=== PATIENT | male | born 1950 | race Caucasian/White ===

== ENCOUNTER 2017-02-14 23:46 | Inpatient (IN) | payer OTHER ==
--- NOTE | 2017-02-15 00:01 | EDPHY ---
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 No witnessed seizure. 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 States that he has been compliant with his Keppra. He last remembers talking to a jitney driver as she was EN route to a restaurant and then remembers being in the ambulance. Per eye witnesses on scene he was altered with no definitive signs of stroke . He denies alcohol use this evening. PRIMARY CARE PROVIDER: Abel REVIEW OF SYSTEMS: A ten point review of systems was performed and is negative with the exception of the items mentioned in the HPI PAST MEDICAL & SURGICAL HISTORY: intracranial malignancy SOCIAL HISTORY:daily alcohol use. Lives by himself . 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 Intermittently confused about what day it is. . 2) HEAD: Normocephalic, left parietal hematoma no abrasion or laceration 3) HEENT: Pupils equal, round, reactive to light bilaterally. Sclera anicteric. No raccoon eyes no Stewart sign. Nasopharynx, oropharynx, clear, no lesions. A hemotympanum. No otorrhea. No rhinorrhea. Ears bilaterally with normal tympanic membranes. 4) NECK: Full range of motion, no meningeal signs. No midline C-spine pain. No step-off. 5) LUNGS: Clear auscultation bilaterally, no wheezes, no rhonchi, no retractions. 6) HEART: Regular rate and rhythm, no murmur, no heave, no gallop. 7) ABDOMEN: No guarding, no rebound, no focal tenderness, 8) MUSCULOSKELETAL: Moving all extremities, no focal areas of tenderness, no obvious trauma. No peripheral edema or discoloration. 9) BACK: no midline vertebral tenderness, no fluctuance, no step-off, no obvious trauma, no visual or palpable abnormality. 10) SKIN: No rash, no petechiae. DIFFERENTIAL DIAGNOSIS: In no particular order including but not limited to hypoglycemia, infectious process, electrolyte abnormality, head injury and intoxicants. (Paige Donnelly) Constitutional: Initial Vital Signs Temperature (C) 37.7 C 02/15/17 00:00 Heart Rate 100 02/15/17 00:00 Respiratory Rate 16 02/15/17 00:00 Blood Pressure 125/81 H 02/15/17 00:00 O2 Sat (%) 95 02/15/17 00:00 O2 Delivery Mode Room Air Allergies/Adverse Reactions: No Known Allergies Allergy (Unverified 06/10/15 17:55) Home Medications: Medication Instructions Recorded Cholestid Unk Dose 07/24/12 levETIRAcetam [Keppra] 500 mg PO BID #60 tab 06/10/15 Medical Decision Making - Diagnostics Imaging: Discussed imaging studies w/ silverlight developer Radiologist - Diagnostics Imaging Results: Imaging Impressions Head CT 02/14/17 23:53 Impression: 1. Large right frontal intraparenchymal hemorrhage contiguous with the broad subdural hematoma extending along the right cerebral convexity and interhemispheric falx. 2. 6 mm of right to left shift and mass effect upon the right lateral ventricle. 3. Petechial hemorrhagic contusion low left frontal lobe. 4. Intraventricular hemorrhage and trace subarachnoid hemorrhage along the high left parietal convexity. 5. Nondisplaced right parietal and occipital skull fracture. Findings discussed with Emergency Department physicianPaige at 0:28. ED Course/Re-evaluation: 11:59 p.m.: Patient evaluated by myself and discussed case with secondary supervising physician Dr. Cisneros shortly after examination, who subsequently evaluated patient herself. Patient is currently altered. Specific etiology not completely clear, will obtain multiple diagnostic studies including ammonia as he notes daily alcohol use 12:24 a.m.: CT imaging interpreted by radiologist showing intraparenchymal hemorraghe 1229 am: Phone [facility]. Jorge Luis Coto [facility] ED PA DICTATION I evaluated and participated in the management of the patient. I also evaluated the patient independently. My co-signature indicates that I have reviewed this chart and I agree with the findings and plan of care as documented. My personal H&P findings include: This is a 66-year-old male with some sort of prior brain operation, who presents with altered mental status. CT scan revealed intraparenchymal hemorrhage in the right frontal region. We consulted with Dr. Coto of Neurosurgery. He recommends Keppra 1 g IV, MRI with and without contrast of the brain, and obtaining additional information about the patient's history. The patient remained stable throughout his time in the ED. MRI was performed while he was here and revealed bleed that appeared to be posttraumatic. 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 Dr. Coto came in to evaluate the patient and will admit him to the ICU for further care. I called the patient's son who lives in [place], however he was unavailable. (Carleen Cisneros) Critical Care Time: CRITICAL CARE Critical care time spent by me, Dr. Cisneros, exclusively with this patient was 60 minutes, exclusive of PA time and exclusive of procedures. The organ system at risk was neuro and I gave IV fluids, antiepileptic drugs, emergently transfer the patient to the intensive care unit to prevent worsening of the patients condition. (Carleen Cisneros) - Data Points Laboratory Results: Laboratory Results 02/15/17 00:16 02/15/17 00:16 02/15/17 02/15/17 02/15/17 00:16 00:16 00:16 WBC RBC Hgb Hct MCV MCH MCHC RDW Plt Count MPV Neut % (Auto) Lymph % (Auto) [place] % (Auto) Eos % (Auto) Baso % (Auto) Nucleat RBC Rel Count Absolute Neuts (auto) Absolute Lymphs (auto) Absolute Monos (auto) Absolute Eos (auto) Absolute Basos (auto) Absolute Nucleated RBC Immature Gran % Immature Gran # PT 12.6 SEC SEC (12.0-15.0) INR 0.95 (0.83-1.16) APTT 25.2 SEC SEC (23.0-38.0) Sodium 131 mEq/L L mEq/L (134-144) Potassium 3.3 mEq/L L mEq/L (3.5-5.2) Chloride 87 mEq/L L mEq/L (97-110) Carbon Dioxide 18 mEq/l L mEq/l (22-31) Anion Gap 26 mEq/L H mEq/L (8-16) BUN 39 mg/dL H mg/dL (7-23) Creatinine 2.0 mg/dL H mg/dL (0.7-1.3) Estimated GFR 34 Glucose 115 mg/dL H mg/dL (70-100) Calcium 10.1 mg/dL mg/dL (8.5-10.4) Total Bilirubin 3.3 mg/dL H mg/dL (0.1-1.4) Conjugated Bilirubin 1.2 mg/dL H mg/dL (0.0-0.5) Unconjugated Bilirubin 2.1 mg/dL H mg/dL (0.0-1.1) AST 87 IU/L H IU/L (17-59) ALT 89 IU/L H IU/L (21-72) Alkaline Phosphatase 55 IU/L IU/L (38-126) Ammonia < 9.0 uMOL/L L uMOL/L (9.0-30.0) Creatine Kinase 334 IU/L H IU/L (0-224) CK-MB (CK-2) Fraction 2.42 ng/mL ng/mL (0.00-3.19) CK-MB (CK-2) % 0.7 % % (0.0-4.0) Creatine Kinase Interp NEGATIVE (NEGATIVE) Troponin I 0.016 ng/mL ng/mL (0.000-0.034) Total Protein 8.0 g/dL g/dL (6.3-8.2) Albumin 4.9 g/dL g/dL (3.5-5.0) Ethyl Alcohol < 10 mg/dL mg/dL (0-10) 02/15/17 00:16 WBC 12.18 10^3/uL H 10^3/uL (3.80-9.50) RBC 3.97 10^6/uL L 10^6/uL (4.40-6.38) Hgb 15.0 g/dL g/dL (13.7-17.5) Hct 41.1 % % (40.0-51.0) MCV 103.5 fL H fL (81.5-99.8) MCH 37.8 pg H pg (27.9-34.1) MCHC 36.5 g/dL g/dL (32.4-36.7) RDW 11.9 % % (11.5-15.2) Plt Count 215 10^3/uL 10^3/uL (150-400) MPV 11.4 fL fL (8.7-11.7) Neut % (Auto) 79.8 % H % (39.3-74.2) Lymph % (Auto) 7.4 % L % (15.0-45.0) [place] % (Auto) 11.9 % % (4.5-13.0) Eos % (Auto) 0.0 % L % (0.6-7.6) Baso % (Auto) 0.2 % L % (0.3-1.7) Nucleat RBC Rel Count 0.0 % % (0.0-0.2) Absolute Neuts (auto) 9.71 10^3/uL H 10^3/uL (1.70-6.50) Absolute Lymphs (auto) 0.90 10^3/uL L 10^3/uL (1.00-3.00) Absolute Monos (auto) 1.45 10^3/uL H 10^3/uL (0.30-0.80) Absolute Eos (auto) 0.00 10^3/uL L 10^3/uL (0.03-0.40) Absolute Basos (auto) 0.03 10^3/uL 10^3/uL (0.02-0.10) Absolute Nucleated RBC 0.00 10^3/uL 10^3/uL (0-0.01) Immature Gran % 0.7 % % (0.0-1.1) Immature Gran # 0.09 10^3/uL 10^3/uL (0.00-0.10) PT INR APTT Sodium Potassium Chloride Carbon Dioxide Anion Gap BUN Creatinine Estimated GFR Glucose Calcium Total Bilirubin Conjugated Bilirubin Unconjugated Bilirubin AST ALT Alkaline Phosphatase Ammonia Creatine Kinase CK-MB (CK-2) Fraction CK-MB (CK-2) % Creatine Kinase Interp Troponin I Total Protein Albumin Ethyl Alcohol Medications Given: Potassium Chloride/Sodium Chloride (Ns W/ 20 Kcl/L) 1,000 mls @ 100 mls/hr IV CONT SEFERINO Stop: 08/14/17 03:44 Last Admin: 02/15/17 04:07 Dose: 1,000 mls Discontinued Medications Levetiracetam 500 mg/ Sodium (Chloride) 105 mls @ 420 mls/hr IV EDNOW ONE Stop: 02/15/17 00:35 Last Admin: 02/15/17 00:40 Dose: 105 mls Levetiracetam 500 mg/ Sodium (Chloride) 105 mls @ 420 mls/hr IV EDNOW ONE Stop: 02/15/17 01:00 Last Admin: 02/15/17 01:14 Dose: 105 mls Lorazepam (Ativan Injection) 1 mg IVP EDNOW ONE Stop: 02/15/17 01:48 Last Admin: 02/15/17 01:52 Dose: 1 mg Departure - Departure Disposition: [facility] Inpatient Acute Clinical Impression: Intracranial hemorrhage Skull fracture Qualifiers: Encounter type: initial encounter Skull bone/location: occipital bone Fracture type: closed Occipital fracture type: unspecified fracture of occiput Laterality : right Qualified Code(s): S02.119A - Unspecified fracture of occiput, initial encounter for closed fracture Condition: Fair
--- NOTE | 2017-02-15 00:10 | CPEKG ---
Heart Rate: 99 RR Interval: 606 P-R Interval: 156 QRSD Interval: 90 QT Interval: 408 QTC Interval: 524 P [place]: 16 QRS [place]: 46 T Wave [place]: 52 EKG Severity - ABNORMAL ECG - EKG Impression: SINUS RHYTHM EKG Impression: PROBABLE LEFT ATRIAL ABNORMALITY EKG Impression: PROLONGED QT INTERVAL Electronically Signed By: Carleen Cisneros 15-Feb-2017 07:13:38
[2017-02-15 00:20] LABS: % IMMATURE GRANULYOCYTES 0.7 % (0.0-1.1); ABSOLUTE IMMATURE GRANULOCYTES 0.09 10^3/uL (0.00-0.10); ADD DIFF? NO; ADD MORPH? NO; ADD SCAN? NO; ATYPICAL LYMPHOCYTE FLAG 0 (0-99); FRAGMENT RBC FLAG 0 (0-99); HEMATOCRIT 41.1 % (40.0-51.0); LEFT SHIFT FLG 0 (0-99); LIPEMIA HEMOLYSIS FLAG 90 (0-99); MEAN CELL HEMOGLOBIN 37.8 pg (27.9-34.1); MEAN CELL HEMOGLOBIN CONCENTR. 36.5 g/dL (32.4-36.7); MEAN CELL VOLUME 103.5 fL (81.5-99.8); MEAN PLATELET VOLUME 11.4 fL (8.7-11.7); PLATELET CLUMPS FLAG 10 (0-99); PLATELET COUNT 215 10^3/uL (150-400); RED BLOOD CELL COUNT 3.97 10^6/uL (4.40-6.38); RED CELL DISTRIBUTION WIDTH 11.9 % (11.5-15.2)
[2017-02-15] MEDS ORDERED: levETIRAcetam 500 MG in NS 100 ML IV ONE ×2 (00:21→00:46)
[2017-02-15 00:29] LABS: APTT 25.2 SEC (23.0-38.0); INR 0.95 (0.83-1.16); PROTIME(PATIENT) 12.6 SEC (12.0-15.0)
[2017-02-15 00:45] LABS: ALANINE AMINOTRANSFERASE 89 IU/L (21-72); ALBUMIN 4.9 g/dL (3.5-5.0); ALKALINE PHOSPHATASE 55 IU/L (38-126); ANION GAP 26 mEq/L (8-16); ASPARTATE AMINOTRANSFERASE 87 IU/L (17-59); BILIRUBIN,TOTAL 3.3 mg/dL (0.1-1.4); BILIRUBIN-CONJUGATED 1.2 mg/dL (0.0-0.5); BILIRUBIN-UNCONJUGATED 2.1 mg/dL (0.0-1.1); CALCIUM 10.1 mg/dL (8.5-10.4); CARBON DIOXIDE 18 mEq/l (22-31); CHLORIDE 87 mEq/L (97-110); ETHANOL SERUM < 10 mg/dL (0-10); GLOMERULAR FILTRATION RATE 34; GLUCOSE 115 mg/dL (70-100); POTASSIUM 3.3 mEq/L (3.5-5.2); SODIUM 131 mEq/L (134-144)
[2017-02-15 00:57] LABS: TROPONIN I 0.016 ng/mL (0.000-0.034)
[2017-02-15 01:06] LABS: CK-MB INTERPRETATION NEGATIVE (NEGATIVE); CREATINE KINASE-MB FRACTION 2.42 ng/mL (0.00-3.19)
[2017-02-15] MEDS ORDERED: LORazepam 2 MG/ML INJ IVP ONE (01:47)
[2017-02-15] MEDS ORDERED: GADOBUTROL 10 ML VIAL IVP ONE (01:50)
[2017-02-15] MEDS ORDERED: BISACODYL 10 MG SUPP PR PRN (03:39)
[2017-02-15] MEDS ORDERED: ONDANSETRON 4 MG/2 ML VIAL IVP PRN ×2 (03:39→11:33)
[2017-02-15] MEDS ORDERED: LACTULOSE 20 GM/30 ML UDCUP PO PRN (03:39)
[2017-02-15] MEDS ORDERED: POLYETHYLENE GLYCOL 3350 17 GM PKT PO PRN (03:39)
[2017-02-15] MEDS ORDERED: MAGNESIUM HYDROXIDE 30 ML UDCUP PO PRN (03:39)
[2017-02-15] MEDS: NS W/ 20 KCl/L 1,000 ML IV SCH ×2 (04:07→17:44)
[2017-02-15 05:30] LABS: % IMMATURE GRANULYOCYTES 0.4 % (0.0-1.1); ABSOLUTE IMMATURE GRANULOCYTES 0.04 10^3/uL (0.00-0.10); ADD DIFF? NO; ADD MORPH? NO; ADD SCAN? NO; ATYPICAL LYMPHOCYTE FLAG 0 (0-99); FRAGMENT RBC FLAG 0 (0-99); HEMATOCRIT 34.2 % (40.0-51.0); HEMOGLOBIN 12.5 g/dL (13.7-17.5); LEFT SHIFT FLG 0 (0-99); LIPEMIA HEMOLYSIS FLAG 90 (0-99); MEAN CELL HEMOGLOBIN 37.1 pg (27.9-34.1); MEAN CELL HEMOGLOBIN CONCENTR. 36.5 g/dL (32.4-36.7); MEAN CELL VOLUME 101.5 fL (81.5-99.8); MEAN PLATELET VOLUME 11.1 fL (8.7-11.7); PLATELET CLUMPS FLAG 0 (0-99); PLATELET COUNT 164 10^3/uL (150-400); RED BLOOD CELL COUNT 3.37 10^6/uL (4.40-6.38); RED CELL DISTRIBUTION WIDTH 11.7 % (11.5-15.2)
[2017-02-15 05:36] LABS: COLOR YELLOW; LEUKOCYTE ESTERASE,URINE NEGATIVE (NEGATIVE); NITRITE,URINE NEGATIVE (NEGATIVE)
[2017-02-15 05:45] LABS: ANION GAP 17 mEq/L (8-16); CALCIUM 8.5 mg/dL (8.5-10.4); CARBON DIOXIDE 18 mEq/l (22-31); CHLORIDE 96 mEq/L (97-110); CREATININE 1.5 mg/dL (0.7-1.3); GLOMERULAR FILTRATION RATE 47; GLUCOSE 97 mg/dL (70-100); POTASSIUM 3.1 mEq/L (3.5-5.2); SODIUM 131 mEq/L (134-144)
--- NOTE | 2017-02-15 06:58 | GHP ---
[f rep st] HISTORY AND PHYSICAL DATE OF ADMISSION: 02/15/2017 The patient was seen and evaluated in the [facility] Emergency Department at [facility] 3:20 a.m. on 02/15/2017. HISTORY OF PRESENT ILLNESS: The patient is a 66-year-old man with a slightly unclear history. 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 Since that time, he has been functioning well and has been living independently. He does co ntinue on Keppra, but does not take any other medications. Apparently, this evening, he was found b y his next door neighbor, who also happens to be 1 of ER physicians, in her driveway without his rowan ts on. He seemed to be confused and was therefore brought to the emergency department. Here, he re mained somewhat confused and acting a bit strange, but otherwise was neurologically intact. A CT of the head was done which revealed a large, 5 cm, right frontal, intraparenchymal hemorrhage beneath his old craniotomy flap. There is about 5 or 6 mm of anterior midline shift from right to left in t he area of the hemorrhage. There is also an associated subdural which measures about 5 or 6 mm at t he right frontal pole. He subsequently had an MRI scan which was significantly degraded by motion, but did not show any obvious underlying vascular malformation or tumor. He has a mild headache curr ently, but otherwise has no complaints. He does say that he does not recall falling this evening, b ut he did fall about 2 days ago and hit his head, losing the lens of his glasses on the right side. REVIEW OF SYSTEMS: A 10-point review of systems is negative, other than that described above in the HPI. 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 SOCIAL HISTORY: The patient lives alone. His apparently recently in the last coup le of years from a heart condition. 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 He denies any tobacco or ot her drug use, and drinks daily alcohol with dinner. FAMILY HISTORY: Negative for intracranial malignancy or other neurosurgical process. ALLERGIES: No known drug allergies. MEDICATIONS: Keppra. PHYSICAL EXAM: Currently, he is afebrile with normal stable vital signs. His blood pressure was in the 120s systolic, heart rate was in the 100s. He is awake, alert, and oriented x3. He is slightl y confused about the situation, but otherwise is quite conversant with fluent speech. His pupils ar e equal, round, and react to light. His extraocular movements are intact. Face is symmetric. Tong ue is midline. Palate is symmetric. He has an old surgical scar from a bicoronal incision on the h ead. In the extremities, he has 5/5 strength at the deltoids, biceps, triceps, wrist flexion, exten star, and fire warden bilaterally. In the lower extremities, he has 5/5 strength of the hip flexors and ex tensors, knee flexors and extensors, and plantar and dorsiflexion bilaterally. His sensation is nor mal. He has no pronator drift. He does have a mild tremor in both hands with intention. There is no dysmetria or dysdiadochokinesia. The chest is clear to auscultation bilaterally. The heart is w ith regular rate and rhythm. No rubs, murmurs, or gallops. His abdomen is soft, nontender, nondist ended, with active bowel sounds in all 4 quadrants. IMAGING REVIEW: See HPI. LABORATORY REVIEW: The white count is 12.1, hemoglobin 15, hematocrit 41.1, platelet count is 215,0 00. His INR is 0.9, PT is 12.6, PTT is 25.2. Sodium is 131, potassium 3.3, BUN is 39, creatinine 2 , glucose is 115. His CK is 334 and the troponins are negative. ASSESSMENT AND PLAN: The patient is a 66-year-old male with a slightly unclear past medical history . He supposedly had a craniotomy for what sounds like a biopsy of demyelinating encephalomyelitis i n the . He appears to have suffered a fall within the last couple of days and has a large, 5 c m, right frontal, intraparenchymal hemorrhage. He appears to have some surrounding edema; however, compared to an old scan earlier this year, he has some white matter changes in the right frontal lob e beneath his craniotomy, which may be consistent with encephalomalacia or some lasting changes from his previous surgery. He currently is quite stable and other than that, he is acting a bit strange , seems to be neurologically intact. Given the size of this bleed, I think that probably surgical i ntervention would be warranted; however, it does not need to be done emergently in the middle of the night tonight. I spoke to him about this, and he said he will need to think about this a little bi t because he did not ever want to have another craniotomy. I did tell him that if we do not do any surgery, he may certainly get worse with swelling and at that point, we will not be certain that he will recover and get better. I think surgical evacuation would largely speed his recovery. He did get loaded with Keppra here in the emergency department, and we will keep him on Keppra 750 twice da fab. He likely has chronic hyponatremia. We may have the medicine service involved to look into hi s creatinine, unless this is just possibly dehydration. I told him I would speak with him again in the morning regarding surgery, and we could discuss the risks and benefits, again. He is agreeable for this plan. We will admit him to the ICU with q.1 hour neuro checks for now. /[id number]/MODL
--- NOTE | 2017-02-15 08:05 | SOAPPROG ---
[facility] Progress Note Assessment/Plan: Assessment: 66M s/p previous craniotomy for biopsy (ADEM), now with likely traumatic large right frontal IPH, neurologically basically intact Plan: - IPH -- will take to OR this morning for evacuation, will take brain biopsy at same time post-op will monitor exam in ICU, continue keppra 750 BID - elevated creatinine -- ? dehydration, if this persists after fluids will get medicine consult - EtOH withdrawl -- he is daily drinker, may have withdrawls over time, will continue to monitor, depending on neuro exam will place on CIWA - DVT ppx -- SCDs, TEDs 02/15/17 08:02 Subjective: no acute complaints, seems to have short term memory deficit Objective: Vital Signs Temp Pulse Resp BP Pulse Ox 36.8 C 92 20 147/88 H 98 02/15/17 07:00 02/15/17 07:00 02/15/17 07:00 02/15/17 07:00 02/15/17 07:00 Laboratory Results 02/15/17 05:20 02/15/17 05:20 02/14/17 02/15/17 02/16/17 05:59 05:59 05:59 Intake Total 1625 Output Total 250 Balance 1375 PT 12.6 SEC (12.0-15.0) 02/15/17 00:16 INR 0.95 (0.83-1.16) 02/15/17 00:16 AAOx3, follows commands, full strength, no drift, confused about situation, + bilateral hand tremor - Pending Discharge Pending Discharge Within 24 Hours: No Pending Discharge Within 48 Hours: No ICD10 Worksheet Patient Problems: Problems Problem Status Onset Intracranial hemorrhage Acute Skull fracture Acute Seizure disorder Acute
[2017-02-15] MEDS ORDERED: levETIRAcetam 250 MG TAB PO SCH (09:00)
--- NOTE | 2017-02-15 09:03 | PDANEPAE ---
ANE History of Present Illness 66 yo M w R frontal lobe clot here for Crani/clot evac ANE Past Medical History - Cardiovascular History Hx Hypertension: No Hx Arrhythmias: No Cardiovascular History Comment: HLD - Pulmonary History Hx COPD: No Hx Asthma/Reactive Airway Disease: No Hx Oxygen in Use at Home: No Hx Sleep Apnea: No Sleep Apnea Screening Result - Last Documented: Negative - Neurologic History Neurologic History Comment: h/o acute demyelnating encephalomyelitis - Endocrine History Hx Diabetes: No ANE Review of Systems - Exercise capacity Exercise capacity: >=4 METS ANE Patient History - Allergies Allergies/Adverse Reactions: No Known Allergies Allergy (Unverified 06/10/15 17:55) - Home Medications Home medications: home medication list seen and reviewed Home Medications: Cholestid Unk Dose 07/24/12 [Last Taken Unknown] - NPO status NPO Status: no food or drink >8 hours NPO Since - Liquids (Date): 02/14/17 NPO Since - Liquids (Time): 00:00 NPO Since - Solids (Date): 02/14/17 NPO Since - Solids (Time): 00:00 - Anes Hx Anes Hx: no prior problems - Smoking Hx Smoking Status: Never smoked - Alcohol Use Alcohol Use: Occasionally - Family Anes Hx Family Anes Hx: none ANE Labs/Vital Signs - Labs Result Diagrams: 02/15/17 05:20 02/15/17 05:20 - Vital Signs Blood Pressure: 133/89 Heart Rate: 91 Respiratory Rate: 24 O2 Sat (%): 97 Height: 180.34 cm Weight: 71.6 kg ANE Physical Exam - Airway Neck exam: decreased ROM Mallampati Score: Class 3 Mouth exam: poor dentition - Pulmonary Pulmonary: no respiratory distress - Cardiovascular Cardiovascular: regular rate and rhythym - ASA Status ASA Status: III ANE Anesthesia Plan Anesthesia Plan: general endotracheal anesthesia (1/2 MAC volatile 1/2 IV) Lines/Monitors: arterial line Total IV Anesthesia: Yes
[2017-02-15] MEDS ORDERED: THROMBIN (BOVINE) 5,000 UNIT VIAL TP ONE (09:05)
[2017-02-15] MEDS ORDERED: SURGIFLO MATRIX KIT WITH THROMBIN TP ONE (09:05)
[2017-02-15] MEDS ORDERED: BACITRACIN ZINC 14.2 GM OINTTUBE TP ONE (09:05)
[2017-02-15] MEDS ORDERED: CHLORHEXIDINE GLUC HIBICLENS 118 ML BTL TP ONE (09:05)
[2017-02-15] MEDS ORDERED: BACITRACIN 50,000 UNITS/10 ML SYR IRR ONE ×2 (09:05→09:16)
[2017-02-15] MEDS ORDERED: REMIFENTANIL HCL 1 MG VIAL ONE (09:21)
[2017-02-15] MEDS ORDERED: fentaNYL 100 MCG/2 ML INJ ONE (09:21)
[2017-02-15] MEDS ORDERED: ROCURONIUM 100 MG/10 ML VIAL ONE (09:21)
[2017-02-15] MEDS ORDERED: PROPOFOL/EMULSION 500 MG/50 ML BOTTLE IV ONE (09:21)
[2017-02-15] MEDS ORDERED: PROPOFOL 200 MG/20 ML VIAL ONE (09:21)
[2017-02-15] MEDS ORDERED: LIDOCAINE 2% 100 MG/5 ML SYR ONE (09:21)
[2017-02-15] MEDS ORDERED: ceFAZolin 1 GM VIAL ONE ×2 (10:07)
[2017-02-15] MEDS ORDERED: ONDANSETRON 4 MG/2 ML VIAL ONE (10:13)
[2017-02-15] MEDS ORDERED: DEXAMETHASONE 4 MG/ML VIAL ONE (10:13)
[2017-02-15] MEDS: LIDO/EPI 1% **Not for Epidural 20 ML MDV ONE ×2 (10:27→11:02)
[2017-02-15] MEDS ORDERED: HYDROmorphONE/DILAUDID 1 MG/ML SYR IVP PRN (11:33)
[2017-02-15] MEDS ORDERED: ACETAMINOPHEN 325 MG TAB PO PRN (11:33)
[2017-02-15] MEDS ORDERED: fentaNYL 100 MCG/2 ML INJ IVP PRN (11:33)
[2017-02-15] MEDS ORDERED: ACETAMINOPHEN 500 MG TAB PO PRN (11:33)
[2017-02-15] MEDS ORDERED: LORazepam 1 MG TAB PO PRN (11:33)
[2017-02-15] MEDS ORDERED: OXYCODONE/APAP 5/325 TAB PO PRN (11:33)
[2017-02-15] MEDS ORDERED: NALOXONE HCL 0.4 MG/ML INJ IVP PRN (11:33)
--- NOTE | 2017-02-15 11:34 | GOP ---
[f rep st] OPERATIVE REPORT DATE OF OPERATION: 02/15/2017 SURGEON: Jorge Luis Coto MD NEUROSURGEON: Jorge Luis Coto MD. FLOOR SANDING MACHINE OPERATOR: AMADOU Alaniz. PREOPERATIVE DIAGNOSIS: Right frontal intraparenchymal hemorrhage, likely traumatic. POSTOPERATIVE DIAGNOSIS: Right frontal intraparenchymal hemorrhage, likely traumatic. PROCEDURE PERFORMED: 1. Redo right frontal craniotomy. 2. Evacuation of right frontal intraparenchymal hemorrhage. 3. Open brain biopsy. 4. Use of intraoperative ultrasound. FINDINGS: Successful clot evacuation and brain biopsy. SPECIMENS: 1. Right frontal intraparenchymal hemorrhage. 2. Right frontal brain biopsy for permanent pathology. ESTIMATED BLOOD LOSS: 50 cc. INDICATIONS: This patient is a 66-year-old man with history of previous bicoronal incision for a ri t frontal craniotomy for what sounds like a brain biopsy. 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 He has recovered well and still has some encephalomalacia and white matter changes in the right frontal region. He presented last h t after being found confused in his neighbor's driveway wearing no pants, and CT of the brain and humphries bsequent MRI revealed a large right frontal intraparenchymal hemorrhage in the area of encephalomala la, with about 5 or 6 mm of anterior midline shift. Overall his neurologic exam appears to be stab le, other than some confusion, short-term memory issues. Given the overall size of this hemorrhage however, and ideally to decrease the chance of him developing further edema and worsening exam, we e lected to remove this hemorrhage electively. DESCRIPTION OF PROCEDURE: After informed consent was obtained from the patient, the patient was bro ught to the operating room, was placed in supine position on the operating table. A formal time-out was performed, identifying the patient by name, medical record number, and date of . Preopera tive antibiotics were given. The endotracheal tube was placed. General endotracheal anesthesia was smoothly induced. The patient's head was placed in the Azul pins and turned slightly toward th e left side. He had a curved bicoronal style incision, and this was marked on the right side efrain bradley just over the midline. The head was then prepped and draped in the normal sterile fashion. The previous incision was opened using a 10 blade and the subcutaneous tissues were dissected using mono polar electrocautery. The scalp was extremely stiff and difficult to retract. We were able to see some of his right frontal craniotomy flap which must have been previously secured with sutures as it was free-floating and not integrated into the bone. We were not able to expose this all the way do wn to the supraorbital region because of the stiffness of the scalp; however we were able to expose about 2.5 cm of the old flap. The craniotome was then used to turn a roughly 2.5 cm roundish cranio celeste flap using the old opening. The dura was not complete beneath and part of the clot was seen. The intraoperative ultrasound was then used to visualize the extent of the clot and we had good expo sure of this. At this point, suction and bipolar electrocautery were used to enter into the intrapa renchymal hemorrhage and it was completely removed using suction and irrigation. The sr were the n cleaned using irrigation. The frontal horn of the lateral ventricle was visualized at the depth o f the cavity where the hemorrhage had coursed most medially. Once we were able to remove the entire ty of the clot, a portion of the clot was sent for permanent pathology. The sr of the cavity wer e inspected and a few biopsies were taken from the wall and sent for permanent pathology. At this p oint, all bleeding was controlled with bipolar electrocautery. The wound was completely dry and the cavity was lined with Surgicel. At this point, the dural flap was flapped back over the brain and secured in a few places with 4-0 Nurolon. I was somewhat worried that any rundown would run back in to the cavity because the dura could not be completely closed as it was not intact, so some Gelfoam was laid over this area, and no further bleeding was seen. The craniotomy flap was then plated back in place using Synthes titanium plates and screws. The wound was copiously irrigated using bacitra michael irrigation. The galea was closed using interrupted 2-0 Vicryl. The skin was closed using runni ng locking 3-0 Prolene. Sterile dressings were placed. The patient was awakened in the operating r oom. He was extubated and transferred back to the ICU in stable condition. There were no operative complications. I was scrubbed and present for the entire procedure. FLUIDS: Per the Anesthesia record. URINE OUTPUT: Per the Anesthesia record. COMPLICATIONS: There were no operative complications. COUNTS: All sponge and needle counts were correct at the end of the case. DRAINS: There were no drains. /[id number]/MODL
[2017-02-15] MEDS ORDERED: LORazepam 2 MG/ML INJ IVP PRN (11:35)
[2017-02-15] MEDS ORDERED: levETIRAcetam 750 MG in NS 100 ML IV STA (11:43)
[2017-02-15] MEDS ORDERED: LABETALOL HCL 5 MG/ML 20 ML MDV ONE (11:46)
--- NOTE | 2017-02-15 11:48 | POSTOPPROG ---
Post Op Note Date of Operation: 02/15/17 Surgeon: Jorge Luis Coto Furnace Combustion Tester: AMBERLY Saenz PAC Anesthesia: GET(General Endotracheal) Pre-op Diagnosis: right frontal ICB Post-op Diagnosis: right frontal ICB Indication: right frontal ICB Procedure: right frontal craniotomy for evacuation of ICB Inf/Abcess present in the surg proc area at time of surgery?: No EBL: 50cc PA Addendum - Addendum .: S: sleepy, resting comfortably O: NAD RITA, CN II-XII grossly intact MAEx4 follows basic commands Incisional dressing c/d/i a/p 66y/o male s/p right frontal craniotomy for ICB evacuation -Post op head CT this afternoon -Continue Keppra 750mg bid -CIWA protocol ordered -SBP goal 90-140 -Q1 hour neuro checks in ICU -DVT prophx: TEDs, SCDs, hold chemical anticoagulation because of brain bleed -Please notify NS with any change in neuro/motor exam
[2017-02-15] MEDS: HYDROmorphONE/DILAUDID 1 MG/ML SYR IVP PRN (11:50)
--- NOTE | 2017-02-15 12:03 | POSTANESTH ---
Post Anesthetic Evaluation Cardiovascular Status: Normal, Stable, Similar to Pre-Op Cond, Tx Hyper/Hypo- tension (labetalol 10 mg given, cardene gtt ordered) Respiratory Status: Normal, Stable, Similar to Pre-op Cond. Level of Consciousness/Mental Status: Can Participate in Eval, Moderately Sleepy (confused, but able to follow commands, ROE) Pain Control: Adequate, Prn Tx Ordered Nausea/Vomiting Control: Adequate, Prn Tx Ordered Complications Possibly Related to Anesthesia: None Noted
[2017-02-15] MEDS: niCARdipine/NACL 200 ML IV PRN ×2 (12:06→14:08)
[2017-02-15] MEDS: SENNOSIDES/DOCUSATE SODIUM TAB PO SCH ×2 (12:31→20:17)
[2017-02-15] MEDS ORDERED: LABETALOL HCL 5 MG/ML 20 ML MDV IVP ONE (12:45)
[2017-02-15] MEDS ORDERED: ALTEPLASE 2 MG VIAL IVP PRN (14:52)
--- NOTE | 2017-02-15 17:20 | GCON ---
[f rep st] CONSULTATION CRITICAL CARE CONSULTATION DATE OF CONSULTATION: 02/15/2017 REASON FOR CONSULTATION: Intensive care unit evaluation and medical management following craniotomy for evacuation of blood. HISTORY: The patient is a 66-year-old. He had a previous right frontal craniotomy in the for a possible tumor. This ended up not being the case and a demyelinating etiology was found. In any case, he did well after that. He has been on Keppra. He was found yesterday by his neighbor with altered mental status. He was thought to perhaps have fallen. He does not remember the events. A CT scan of the head showed a 5 cm right frontal intraparenchymal hemorrhage in the area of his old craniotomy flap. There was some shift. He was taken to the operating room by Dr. Coto for evacuation of the blood. This was done. Biopsies were sent. Surgery went well, and he was returned to the intensive care unit sleepy but in good condition. PAST MEDICAL HISTORY: Remarkable primarily for the previous brain biopsy for which he takes Keppra. He is also on p.r.n. trazodone at night and lorazepam p.r.n. for apparent anxiety. SOCIAL HISTORY: He worked in the [employer]. He has a son who lives in this area. He is a never smoker. He drinks alcohol occasionally. FAMILY HISTORY: Noncontributory. REVIEW OF SYSTEMS: Difficult to obtain. There is no history of heart disease or lung disease, no thromboembolic disorder. A 10-point review of systems is otherwise negative. PHYSICAL EXAMINATION: GENERAL: Reveals a gentleman who is lethargic postoperatively, but arouses and answers questions slowly but appropriately. VITAL SIGNS: Blood pressure is approximately 110/60, heart rate 90 with sinus rhythm on the monitor. He is on 2 L of oxygen, saturations of 92%. Respiratory rate is 16. He is afebrile. HEENT: The head is postoperative with dressings in place on the left. Pupils appear equal. Mucous membranes are somewhat dry. NECK : Unremarkable for lymphadenopathy, thyromegaly, or jugular venous distention. CHEST: Clear bilaterally. Breath sounds are somewhat diminished at the bases. HEART: Regular in rate and rhythm without significant murmurs or gallop. ABDOMEN : Soft, nontender. Bowel sounds are present. There is no edema, no skin rash or lesions. NEUROLOGIC: Nonfocal. He moves all extremities equally, but is somewhat somnolent postoperatively. He is oriented x2. DATABASE: Postoperative head CT shows evacuation of the intraparenchymal hematoma with some associated edema and shift. Some subdural and subarachnoid blood is noted. There is a nondisplaced right skull fracture. LABORATORY: White blood cell count is 10,000, hematocrit 34, platelets 164, 000. PT and PTT are normal. Sodium is 131, potassium 3.1, CO2 of 18 with an anion gap of 17. BUN is 39 with a creatinine of 1.5, down from 2.0. Bilirubin on admission was 3.3. Liver function studies were mildly elevated with an AST of 87 and an ALT of 89. Ammonia was less than 9. Other lab values were normal. Blood alcohol on admission was negative. ASSESSMENT: 1. Intraparenchymal bleed in the area of an old brain biopsy: This apparently was related to a fall and/or possibly a seizure? Details are unclear as there were no witnesses prior to him being found. In any case, he is status post evacuation of his intraparenchymal bleed and is stable postoperatively. He remains somewhat lethargic, possibly secondary to anesthesia, possibly secondary to his injury. 2. Hyponatremia and hypokalemia: Normal saline is being given. Potassium will be replaced per protocols. 3. Possible alcohol withdrawal: He does drink scotch every day. The amount he drinks is unclear. He is on the CIWA protocol, but it is too early postoperatively to evaluate. Appropriate medications including thiamine, p.r.n. Ativan, etc., are being given per the protocol. 4. Elevated liver function studies: These are mild. They may be indicative of alcohol, possibly other etiologies. LFTs will be followed. PLAN/RECOMMENDATIONS: The patient will be kept in the intensive care unit. Intravenous fluids normal saline with potassium will be continued. Keppra will be continued. He is on the CIWA protocol and will be assessed as we go along. Thiamine will be continued. He is on lactulose p.r.n. per Neurosurgery. Antihypertensives are available if needed. Hydrocodone can be given for pain. Chemistries, CBC, and liver function studies will all be followed. Further plans and recommendations will be made based on his progress over the next 12-24 hours. /[id number]/MODL and [id number]/MODL [facility]
[2017-02-15] MEDS: levETIRAcetam 250 MG TAB PO SCH (20:17)
[2017-02-15] MEDS ORDERED: NON-FORMULARY NEW DRUG (Levetiracetam [Keppra] 750 MG) PO SCH (21:00)
[2017-02-16 04:35] LABS: % IMMATURE GRANULYOCYTES 0.4 % (0.0-1.1); ABSOLUTE IMMATURE GRANULOCYTES 0.04 10^3/uL (0.00-0.10); ADD DIFF? NO; ADD MORPH? NO; ADD SCAN? NO; ATYPICAL LYMPHOCYTE FLAG 0 (0-99); FRAGMENT RBC FLAG 0 (0-99); HEMATOCRIT 33.5 % (40.0-51.0); HEMOGLOBIN 12.4 g/dL (13.7-17.5); LEFT SHIFT FLG 0 (0-99); LIPEMIA HEMOLYSIS FLAG 90 (0-99); MEAN CELL HEMOGLOBIN 37.1 pg (27.9-34.1); MEAN CELL VOLUME 100.3 fL (81.5-99.8); MEAN PLATELET VOLUME 10.8 fL (8.7-11.7); PLATELET CLUMPS FLAG 10 (0-99); PLATELET COUNT 181 10^3/uL (150-400); RED BLOOD CELL COUNT 3.34 10^6/uL (4.40-6.38); RED CELL DISTRIBUTION WIDTH 11.6 % (11.5-15.2)
[2017-02-16 05:01] LABS: ANION GAP 11 mEq/L (8-16); CALCIUM 8.3 mg/dL (8.5-10.4); CARBON DIOXIDE 23 mEq/l (22-31); CHLORIDE 99 mEq/L (97-110); GLOMERULAR FILTRATION RATE > 60; GLUCOSE 135 mg/dL (70-100); MAGNESIUM 1.5 mg/dL (1.6-2.3); POTASSIUM 3.3 mEq/L (3.5-5.2); SODIUM 133 mEq/L (134-144)
[2017-02-16] MEDS: FOLIC ACID 1 MG TAB PO SCH (07:38)
[2017-02-16] MEDS: HYDROCODONE/APAP 10/325 TAB PO PRN ×2 (07:38→16:49)
[2017-02-16] MEDS: MULTIVITAMINS 1 EACH TAB PO SCH (07:39)
[2017-02-16] MEDS: SENNOSIDES/DOCUSATE SODIUM TAB PO SCH ×2 (07:39→20:08)
[2017-02-16] MEDS: levETIRAcetam 250 MG TAB PO SCH ×2 (07:40→20:08)
[2017-02-16] MEDS ORDERED: PNEUMOC 13-VAL CONJ-DIP CRM/PF 0.5 ML SYR IM ONE (08:08)
[2017-02-16] MEDS: hydrALAZINE 20 MG/ML VIAL IVP PRN ×2 (11:04→16:53)
--- NOTE | 2017-02-16 11:14 | NEUSURGPN ---
Assessment/Plan: S: Sitting up in chair eating breakfast. COmplains of mild headache. [place] somewhat dizzy when standing out of bed. O: NAD PERRLA, CN II-XII grossly intact MAEx4 follows basic commands Incision c/d/i- dressing removed dried blood a/p 66y/o male s/p right frontal craniotomy for ICB evacuation -Post op head CT stable- -Continue Keppra 750mg bid -CIWA protocol ordered -SBP goal 90-140 -Q2 hour neuro checks - SDU status ok -May shower today -Creatinine trending down- 1.0 today -DVT prophx: TEDs, SCDs, hold chemical anticoagulation because of brain bleed for now -PT/OT -Patient seen by Dr. Coto as well -Please notify NS with any change in neuro/motor exam - Physician Discussed Patient with Dr.: Coto Patient Seen by : Nnamdi Neurosurgery Physical Exam - Vitals, I&O, Labs I and O 02/15/17 02/16/17 02/17/17 05:59 05:59 05:59 Intake Total 1625 2480 810 Output Total 250 1750 Balance 1375 730 810 Weight 71.6 kg 71.6 kg Intake: Oral (ml) 0 250 810 IV Infused (ml) 1625 2230 NS W/ 20 KCl/L 1,000 ml @ 125 2032 100 mls/hr IV CONT SEFERINO Rx#:[id number] niCARdipine/NACL 200 ml @ 198 Titrate IV PRN PRN Rx#: [id number] Output: Urine (ml) 250 1750 Toilet 500 Urinal 250 1250 Other: Number of Voids Toilet 1 1 Urinal 1 1 Vital Signs Temp Pulse Resp BP Pulse Ox 36.4 C 86 22 H 154/104 H 95 02/16/17 07:00 02/16/17 11:08 02/16/17 11:08 02/16/17 11:08 02/16/17 11:08 Laboratory Results 02/16/17 04:20 02/16/17 04:20 ICD10 Worksheet Patient Problems: Problems Problem Status Onset Intracranial hemorrhage Acute Skull fracture Acute Seizure disorder Acute
--- NOTE | 2017-02-16 12:02 | PDINTPN ---
[facility] Progress Note Assessment/Plan: Assessment/plan: * Status post fall versus seizure * Intraparenchymal hemorrhage-status post right frontal craniotomy for ICP evacuation * Hyponatremia and hypokalemia * Possible alcohol withdrawal-continue [facility] * Elevated transaminases * Mental status been awake and alert Overall improved Subjective: Awake and alert. Comfortable. Headache has improved. Objective: Vital Signs Temp Pulse Resp BP Pulse Ox 36.4 C 86 22 H 154/104 H 95 02/16/17 07:00 02/16/17 11:08 02/16/17 11:08 02/16/17 11:08 02/16/17 11:08 Laboratory Results 02/16/17 04:20 02/16/17 04:20 02/15/17 02/16/17 02/17/17 05:59 05:59 05:59 Intake Total 1625 2480 810 Output Total 250 1750 Balance 1375 730 810 PT 12.6 SEC (12.0-15.0) 02/15/17 00:16 INR 0.95 (0.83-1.16) 02/15/17 00:16 Physical Exam - Physical Exam General Appearance: alert, no apparent distress EENT: PERRL/EOMI, normal ENT inspection Neck: non-tender Respiratory: chest non-tender, lungs clear, normal breath sounds Cardiac/Chest: normal peripheral pulses, regular rate, rhythm Peripheral Pulses: 2+: carotid (R), carotid (L), femoral (R), femoral (L), dorsalis-pedis (R), dorsalis-pedis (L) Abdomen: normal bowel sounds, non-tender, soft Male Genitalia: deferred Rectal: deferred Skin: normal color, warm/dry ICD10 Worksheet Patient Problems: Problems Problem Status Onset Intracranial hemorrhage Acute Skull fracture Acute Seizure disorder Acute
[2017-02-16] MEDS: ACETAMINOPHEN 325 MG TAB PO PRN (19:54)
[2017-02-17] MEDS: HYDROCODONE/APAP 10/325 TAB PO PRN ×2 (01:34→16:26)
[2017-02-17] MEDS: ACETAMINOPHEN 325 MG TAB PO PRN (05:47)
[2017-02-17 05:54] LABS: ANION GAP 14 mEq/L (8-16); CARBON DIOXIDE 20 mEq/l (22-31); CHLORIDE 99 mEq/L (97-110); CREATININE 0.7 mg/dL (0.7-1.3); GLOMERULAR FILTRATION RATE > 60; GLUCOSE 111 mg/dL (70-100); MAGNESIUM 1.5 mg/dL (1.6-2.3); SODIUM 133 mEq/L (134-144)
[2017-02-17 06:05] LABS: % IMMATURE GRANULYOCYTES 0.9 % (0.0-1.1); ABSOLUTE IMMATURE GRANULOCYTES 0.09 10^3/uL (0.00-0.10); ADD DIFF? NO; HEMATOCRIT 36.1 % (40.0-51.0); HEMOGLOBIN 13.5 g/dL (13.7-17.5); MEAN CELL HEMOGLOBIN 36.2 pg (27.9-34.1); MEAN CELL HEMOGLOBIN CONCENTR. 37.4 g/dL (32.4-36.7); MEAN CELL VOLUME 96.8 fL (81.5-99.8); MEAN PLATELET VOLUME 11.7 fL (8.7-11.7); PLATELET COUNT 222 10^3/uL (150-400); RED BLOOD CELL COUNT 3.73 10^6/uL (4.40-6.38); RED CELL DISTRIBUTION WIDTH 11.6 % (11.5-15.2)
[2017-02-17 06:09] LABS: ADD MORPH? NO; ADD SCAN? NO
[2017-02-17] MEDS: hydrALAZINE 20 MG/ML VIAL IVP PRN ×2 (07:56→16:26)
[2017-02-17] MEDS ORDERED: PROTOCOL POTASSIUM 1 DOSE MISC PRN (08:02)
[2017-02-17] MEDS ORDERED: PROTOCOL MAGNESIUM 1 DOSE IV PRN (08:02)
[2017-02-17] MEDS ORDERED: POTASSIUM CL 10 MEQ TAB PO ONE ×3 (08:05→20:45)
--- NOTE | 2017-02-17 08:05 | NEUSURGPN ---
Assessment/Plan: A/P 66y/o male s/p right frontal craniotomy for ICB evacuation -Post op head CT stable -Continue Keppra 750mg bid -CIWA protocol ordered -SBP goal 90-140 -Q4 hour neuro checks -Creatinine trending down- 0.7 today -DVT prophx: TEDs, SCDs, hold chemical anticoagulation because of brain bleed for now -PT/OT -Please notify NS with any change in neuro/motor exam Subjective: Denies any new pain, nausea, dizziness Objective: NAD PERRLA, CN II-XII grossly intact MAEx4 follows basic commands Incision c/d/i - Physician Discussed Patient with : Nnamdi Neurosurgery Physical Exam - Vitals, I&O, Labs I and O 02/16/17 02/17/17 02/18/17 05:59 05:59 05:59 Intake Total 2480 2185 Output Total 1750 375 Balance 730 1810 Weight 71.6 kg Intake: Oral (ml) 250 2070 IV Infused (ml) 2230 115 NS W/ 20 KCl/L 1,000 ml @ 2032 100 mls/hr IV CONT SEFERINO Rx#:[id number] niCARdipine/NACL 200 ml @ 198 115 Titrate IV PRN PRN Rx#: [id number] Output: Urine (ml) 1750 375 Toilet 500 Urinal 1250 375 Other: Number of Voids Incontinence 1 Toilet 1 2 Urinal 1 Vital Signs Temp Pulse Resp BP Pulse Ox 36.6 C 78 16 154/89 H 99 02/17/17 07:50 02/17/17 07:50 02/17/17 07:50 02/17/17 07:50 02/17/17 07:50 Laboratory Results 02/17/17 05:11 02/17/17 05:11 ICD10 Worksheet Patient Problems: Problems Problem Status Onset Intracranial hemorrhage Acute Skull fracture Acute Seizure disorder Acute
[2017-02-17] MEDS: FOLIC ACID 1 MG TAB PO SCH (08:47)
[2017-02-17] MEDS: SENNOSIDES/DOCUSATE SODIUM TAB PO SCH ×2 (08:47→20:40)
[2017-02-17] MEDS ORDERED: MAGNESIUM SULF 1 GM/DEXTROSE 100 ML IV ONE (08:48)
[2017-02-17] MEDS: levETIRAcetam 250 MG TAB PO SCH ×2 (08:48→20:40)
[2017-02-17] MEDS: MULTIVITAMINS 1 EACH TAB PO SCH (08:48)
--- NOTE | 2017-02-17 14:23 | ASMTCMCOM ---
CM Note CM Note Notes: 66yo male admitted for a fall and ICH. Needed a crani and continues to need neuro checks. Pt lives alone. CM has been discussing D/C needs w/pt. 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 goes to work out, dinner and a bereavement grp. Therapies are thinking that he is doing well and may or may not need HC. Talked w/pt about HC vs out-pt rehab. could also get Meal s on Wheels. Pt may not be allowed to drive and would use the [facility]. CM to check in w/pT Thursday to determine what he wishes to do. Date Signed: 02/17/2017 01:48 PM Electronically Signed By:Melissa Tapia
[2017-02-17] MEDS: HYDROmorphONE/DILAUDID 1 MG/ML SYR IVP PRN (17:22)
[2017-02-17] MEDS ORDERED: LABETALOL HCL 5 MG/ML 20 ML MDV IVP ONE (18:00)
[2017-02-17] MEDS ORDERED: oxyCODONE IR 5 MG TAB PO PRN (18:20)
[2017-02-17 18:32] LABS: POTASSIUM 2.7 mEq/L (3.5-5.2)
--- NOTE | 2017-02-17 20:19 | GCON ---
[f rep st] CONSULTATION INTERNAL MEDICINE CONSULTATION DATE OF CONSULTATION: 02/17/2017 REFERRING PHYSICIAN: Jorge Luis Coto MD REASON FOR CONSULTATION: Medical opinion regarding medical management of electrolyte depletion, and possible alcohol use. HISTORY: The patient is a 66-year-old male who was found by a neighbor with altered mental status. Patient has no memory of the events. Head CT showed a 5 cm right frontal intraparenchymal hemorrha ge in the area of a previous craniotomy he had many years ago. There was a little bit of shift. He was brought emergently to the operating room with Dr. Coto, where the clot was evacuated and he wa s transferred to ICU. He is now stable for transfer to the floor, and requesting hospital consultat ion to follow. He had recently fallen, so they are thinking the hemorrhage was traumatic, although a biopsy is pending. PAST MEDICAL HISTORY: 1. Previous craniotomy, although pathology showed an acute demyelinating encephalomyelitis. 2. Seizure disorder. MEDICATIONS: Please see computer record for full detailed list. ALLERGIES: No known drug allergies. SOCIAL HISTORY: No smoking. He tells me, he only has 1 glass of wine with dinner, although there i s a verbal report to me from Neurosurgery that alcohol use may be more. 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 REVIEW OF SYSTEMS: Complete review of systems obtained. Review of systems is negative regarding co nstitutional, HEENT, GI, pulmonary, cardiovascular, , hematology, skin, muscular, endocrine, psych , except for positives and negatives as noted in HPI. FAMILY HISTORY: Reviewed, noncontributory to presenting complaint. PHYSICAL EXAMINATION: GENERAL: Well-developed, well-nourished male, in no distress. VITAL SIGNS: Temperature is 36.4, pulse 97, blood pressure 147/79, saturating 97% in room air. EYES: Normal co njunctivae, pupils are equal, reactive to light. ENT: Normal ears and nose. Hearing intact. Norm al teeth. Oropharynx moist. NECK: Trachea midline. No thyromegaly. CHEST: Normal respiratory e ffort. LUNGS: Clear to auscultation bilaterally. CARDIOVASCULAR: Regular rate and rhythm. No mu rmur. No lower extremity edema. ABDOMEN: Soft, nontender. No hepatosplenomegaly. SKIN: Warm, d ry, intact. No rash. MUSCULOSKELETAL: No cyanosis or clubbing. Strength is 5/5, upper and lower extremities. NEUROLOGIC: Cranial nerves intact. Normal sensation to light touch. PSYCH: Awake, alert and oriented x3. Normal affect. Normal judgment and insight. Normal memory. LAB: White count 9.7, hematocrit 36.1, platelets 222. Sodium 133, potassium 3.0, chloride 99, bica rb 26, BUN 16, creatinine 0.7, glucose 111, magnesium is 1.5. INR 0.95. Total bilirubin 3.3, ALT i s 87, ALT is 89. Chest x-ray is negative. I spoke with Dr. Coto's physician hair assistant regarding consultation; reportedly, there were concerns for possible alcohol withdrawal. ASSESSMENT/PLAN: 1. Traumatic intraparenchymal hemorrhage, status post craniotomy. Biopsy is pending, given the fac t this is a bleed into a previous craniotomy biopsy site. Management per Neurosurgery. 2. Increased liver function tests. There has been a questionable alcohol history. We will check a n abdominal ultrasound. 3. Electrolyte depletion. That would also be consistent with alcohol use. We will continue to fol low with electrolyte repletion protocol. 4. Seizure disorder. Continue Keppra. Internal Medicine will continue to follow as long as the patient remains hospitalized. Thank you very much for this consultation. /[id number]/MODL
[2017-02-18 05:25] LABS: ALANINE AMINOTRANSFERASE 47 IU/L (21-72); ALBUMIN 3.4 g/dL (3.5-5.0); ALKALINE PHOSPHATASE 49 IU/L (38-126); ANION GAP 11 mEq/L (8-16); ASPARTATE AMINOTRANSFERASE 25 IU/L (17-59); BILIRUBIN,TOTAL 1.8 mg/dL (0.1-1.4); BILIRUBIN-CONJUGATED 0.4 mg/dL (0.0-0.5); BILIRUBIN-UNCONJUGATED 1.4 mg/dL (0.0-1.1); CALCIUM 9.3 mg/dL (8.5-10.4); CARBON DIOXIDE 22 mEq/l (22-31); CHLORIDE 96 mEq/L (97-110); CREATININE 0.8 mg/dL (0.7-1.3); GLOMERULAR FILTRATION RATE > 60; GLUCOSE 109 mg/dL (70-100); MAGNESIUM 1.8 mg/dL (1.6-2.3); POTASSIUM 2.9 mEq/L (3.5-5.2); SODIUM 129 mEq/L (134-144); TOTAL PROTEIN 6.2 g/dL (6.3-8.2)
[2017-02-18 05:27] LABS: % IMMATURE GRANULYOCYTES 0.4 % (0.0-1.1); ABSOLUTE IMMATURE GRANULOCYTES 0.04 10^3/uL (0.00-0.10); ADD DIFF? NO; ADD MORPH? NO; ADD SCAN? NO; ATYPICAL LYMPHOCYTE FLAG 0 (0-99); FRAGMENT RBC FLAG 0 (0-99); HEMATOCRIT 35.1 % (40.0-51.0); HEMOGLOBIN 13.1 g/dL (13.7-17.5); LEFT SHIFT FLG 0 (0-99); LIPEMIA HEMOLYSIS FLAG 90 (0-99); MEAN CELL HEMOGLOBIN CONCENTR. 37.3 g/dL (32.4-36.7); MEAN CELL VOLUME 99.2 fL (81.5-99.8); MEAN PLATELET VOLUME 11.1 fL (8.7-11.7); PLATELET CLUMPS FLAG 0 (0-99); PLATELET COUNT 225 10^3/uL (150-400); RED BLOOD CELL COUNT 3.54 10^6/uL (4.40-6.38); RED CELL DISTRIBUTION WIDTH 11.5 % (11.5-15.2)
[2017-02-18] MEDS ORDERED: POTASSIUM CL 10 MEQ TAB PO ONE ×2 (07:08→19:45)
[2017-02-18] MEDS ORDERED: MAGNESIUM SULF 1 GM/DEXTROSE 100 ML IV ONE (07:09)
[2017-02-18] MEDS: HYDROCODONE/APAP 10/325 TAB PO PRN ×2 (08:00→19:47)
[2017-02-18] MEDS: levETIRAcetam 250 MG TAB PO SCH ×2 (08:00→19:47)
[2017-02-18] MEDS: FOLIC ACID 1 MG TAB PO SCH (08:02)
[2017-02-18] MEDS: THIAMINE HCL 100 MG TAB PO SCH (08:02)
[2017-02-18] MEDS: MULTIVITAMINS 1 EACH TAB PO SCH (08:03)
[2017-02-18] MEDS: SENNOSIDES/DOCUSATE SODIUM TAB PO SCH ×2 (08:03→19:47)
--- NOTE | 2017-02-18 08:59 | SOAPPROG ---
SOAP Progress Note Assessment/Plan: Assessment: 66 yo M POD #3 right craniotomy for evacuation of ICH Plan: neuro: stable and doing well overall Na : 129 this morning, will likely fluid restrict and stat Nacl tabs PT/OT/ST etoh abuse, on CIWA protocol patient will likely need inpatient rehab please call with neuro changes discussed with Dr Coto 02/18/17 08:43 Subjective: continued headaches, no N/V. No weakness. Objective: Vital Signs Temp Pulse Resp BP Pulse Ox 36.4 C 88 16 143/80 H 98 02/18/17 07:47 02/18/17 07:47 02/18/17 07:47 02/18/17 07:47 02/18/17 07:47 Laboratory Results 02/18/17 04:57 02/18/17 04:57 02/17/17 02/18/17 02/19/17 05:59 05:59 05:59 Intake Total 2185 2100 Output Total 375 Balance 1810 2100 PT 12.6 SEC (12.0-15.0) 02/15/17 00:16 INR 0.95 (0.83-1.16) 02/15/17 00:16 AAOx4, +FC PERRL, EOMI, no facial droop CHARLEEN x 4 + light touch C/D/I ICD10 Worksheet Patient Problems: Problems Problem Status Onset Intracranial hemorrhage Acute Skull fracture Acute Seizure disorder Acute
--- NOTE | 2017-02-18 11:24 | ASMTCMCOM ---
CM Note CM Note Notes: Pt's cell phone# [phone] for HC/Meals on Wheels if needed. Date Signed: 02/18/2017 11:23 AM Electronically Signed By:Melissa Tapia
[2017-02-18] MEDS: SODIUM CHLORIDE 1,000 MG TAB PO SCH ×2 (12:20→18:45)
[2017-02-18] MEDS: POTASSIUM Cl (KCl) 40 MEQ in NS 1,000 ML IV SCH (12:20)
--- NOTE | 2017-02-18 16:43 | HOSPPROG ---
Hospitalist Progress Note Assessment/Plan: assessment: 66-year-old male presents with acute traumatic intracranial hemorrhage, medicine consultation for acute hyponatremia acute hypokalemia Plan: 1. Hyponatremia. Acute, new problem this provider, further workup indicated. Most likely secondary to SIADH given patient's chronic alcohol use as well as primary polydipsia - repeat serum sodium level now - get urine sodium level - has ongoing normal saline with supplemental potassium, but will discontinue if serum sodium level worsening - free water restriction 1.5 L daily - counseled patient that he should reduce his free water intake at home, and that alcohol may also contribute to hyponatremia, which can lower the seizure threshold 2. Hypokalemia. Acute, unclear etiology, repeating with normal saline and oral potassium supplementation, repeating level now 3. transaminitis. Acute, secondary to suspected alcohol use, improved with IV fluids and distance from alcohol -liver ultrasound demonstrates hepatic steatosis -recommend outpatient follow-up as well as alcohol cessation 4. Traumatic intra cranial hemorrhage. Patient with intraparenchymal hemorrhage , suspected to be traumatic, status post craniotomy by Neurosurgery, remains primary service - plan for inpatient rehab discharged tomorrow if above stabilized 4. seizure disorder. Chronic, recommend outpatient follow up with his primary neurologist, discuss seizure history as well as possibility that his fall and resultant trauma may have been related to a seizure -Wellbutrin lowers the seizure threshold and will be discontinued -will need outpatient behavioral health follow-up to titrate psychiatric medications Hospital Medicine service will continue to consult in this patient's daily care Subjective: counseled the patient extensively regarding free water intake Objective: Vital Signs Temp Pulse Resp BP Pulse Ox 36.9 C 87 14 130/77 H 96 02/18/17 15:45 02/18/17 15:45 02/18/17 15:45 02/18/17 15:45 02/18/17 15:45 Laboratory Results 02/18/17 04:57 02/18/17 04:57 02/17/17 02/18/17 02/19/17 05:59 05:59 05:59 Intake Total 2185 2100 Output Total 375 Balance 1810 2100 PT 12.6 SEC (12.0-15.0) 02/15/17 00:16 INR 0.95 (0.83-1.16) 02/15/17 00:16 - Time Spent With Patient Time Spent with Patient: greater than 35 minutes Time Spent with Patient: Greater than 35 minutes spent on this patients care, greater than 50% of time spent counseling, educating, and coordinating care regarding the above mentioned plan. - Pending Discharge Pending Discharge Within 24 Hours: Yes Pending Discharge Date: 02/19/17 Pending Discharge Time: 11:00 - Physical Exam Constitutional: no apparent distress, appears nourished, not in pain Eyes: PERRL, anicteric sclera, EOMI Ears, Nose, Mouth, Throat: moist mucous membranes, hearing normal, ears appear normal, no oral mucosal ulcers Cardiovascular: regular rate and rhythym, no murmur, rub, or gallop Respiratory: no respiratory distress, no rales or rhonchi, clear to auscultation Gastrointestinal: normoactive bowel sounds, soft, non-tender abdomen, no palpable masses Skin: other ( no erythema surrounding his scalp surgical site) Neurologic: AAOx3, sensation intact bilaterally, No weakness ( motor strength 5/ 5 bilateral lower extremity), No facial droop Psychiatric: interacting appropriately, not anxious, not encephalopathic, thought process linear ICD10 Worksheet Patient Problems: Problems Problem Status Onset Seizure disorder Acute Intracranial hemorrhage Acute Skull fracture Acute
--- NOTE | 2017-02-18 17:02 | ASMTCMCOM ---
CM Note CM Note Notes: Patient was evaluated for and accepted into [facility] inpatient rehab program. Spoke with patient who is in agreement with the d/c plan. Patient was given the packet of info on the program to review. Dr. Mcgraw confirmed patient will be ready for d/c gurpreet orr02-19-17. Patient will contact his son to bring him some clean clothes as he understands he will go directly from ICU to Inpatient Rehab with out an opportunity to return home. Transportation will be arranged tomorrow. CM will follow. Date Signed: 02/18/2017 05:02 PM Electronically Signed By:Fany Anne
[2017-02-18 18:50] LABS: POTASSIUM 3.6 mEq/L (3.5-5.2); SODIUM 133 mEq/L (134-144)
[2017-02-18] MEDS: hydrALAZINE 20 MG/ML VIAL IVP PRN (23:26)
[2017-02-19] MEDS: POTASSIUM Cl (KCl) 40 MEQ in NS 1,000 ML IV SCH (01:21)
[2017-02-19] MEDS: HYDROCODONE/APAP 10/325 TAB PO PRN (04:02)
[2017-02-19 05:37] LABS: ALANINE AMINOTRANSFERASE 42 IU/L (21-72); ALBUMIN 3.1 g/dL (3.5-5.0); ALKALINE PHOSPHATASE 45 IU/L (38-126); ANION GAP 10 mEq/L (8-16); ASPARTATE AMINOTRANSFERASE 21 IU/L (17-59); BILIRUBIN,TOTAL 1.3 mg/dL (0.1-1.4); CALCIUM 8.6 mg/dL (8.5-10.4); CARBON DIOXIDE 18 mEq/l (22-31); CHLORIDE 107 mEq/L (97-110); CREATININE 0.7 mg/dL (0.7-1.3); GLOMERULAR FILTRATION RATE > 60; GLUCOSE 95 mg/dL (70-100); MAGNESIUM 1.9 mg/dL (1.6-2.3); POTASSIUM 3.6 mEq/L (3.5-5.2); SODIUM 135 mEq/L (134-144); TOTAL PROTEIN 5.6 g/dL (6.3-8.2)
[2017-02-19] MEDS: hydrALAZINE 20 MG/ML VIAL IVP PRN (05:40)
--- NOTE | 2017-02-19 07:52 | NEUSURGPN ---
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 Denies any nausea, vomiting Objective: NAD FLORINDARJAD, CN II-XII grossly intact MAEx4 5/5 and equal in BUE and BLE Incision c/d/i - Physician Discussed Patient with : Nnamdi Neurosurgery Physical Exam - Vitals, I&O, Labs I and O 02/18/17 02/19/17 02/20/17 05:59 05:59 05:59 Intake Total 2100 2746 Balance 2100 2746 Intake: Oral (ml) 2000 1540 IV Intake (ml) 100 IV Infused (ml) 1206 POTASSIUM Cl (KCl) 40 meq 1206 In Ns 1,000 ml @ 100 mls /hr IV CONT SEFERINO Rx#: [id number] Other: Intake Quantity Yes Sufficient Number of Voids Incontinence 4 Toilet 7 5 Vital Signs Temp Pulse Resp BP Pulse Ox 36.6 C 87 14 157/90 H 98 02/19/17 07:29 02/19/17 07:29 02/19/17 07:29 02/19/17 07:29 02/19/17 07:29 Laboratory Results 02/18/17 04:57 02/19/17 05:09 ICD10 Worksheet Patient Problems: Problems Problem Status Onset Intracranial hemorrhage Acute Skull fracture Acute Seizure disorder Acute
[2017-02-19] MEDS: levETIRAcetam 250 MG TAB PO SCH (08:25)
[2017-02-19] MEDS: THIAMINE HCL 100 MG TAB PO SCH (08:26)
[2017-02-19] MEDS: FOLIC ACID 1 MG TAB PO SCH (08:26)
[2017-02-19] MEDS: SODIUM CHLORIDE 1,000 MG TAB PO SCH ×2 (08:26→11:17)
[2017-02-19] MEDS: MULTIVITAMINS 1 EACH TAB PO SCH (08:26)
[2017-02-19] MEDS: SENNOSIDES/DOCUSATE SODIUM TAB PO SCH (08:26)
--- NOTE | 2017-02-19 09:20 | HOSPPROG ---
Hospitalist Progress Note Assessment/Plan: Patient is a 66-year-old male who was found by a neighbor with altered mental status. It was noted that he had a right frontal intraparenchymal hemorrhage. He had a clot that was evacuated. Today is my 1st encounter with the patient. Chart reviewed. * Hyponatremia likely secondary to SIADH patient has underlying polydipsia as well as chronic alcohol use and sodium levels improved nicely with fluid restriction * traumatic intracranial hemorrhage status post craniotomy * hypertension added low dose Norvasc this dose may need to be increased if blood pressure cont to be elevated recommending stopping the salt tablets when ok w neurosurgery * transaminitis liver ultrasound shows hepatic steatosis * seizure disorder/on Keppra Wellbutrin discontinued due to lowering seizure threshold will need follow-up with a psychiatrist in regards to other medications * hypokalemia much improved *Plan: closely monitoring of blood pressure, fluid restrict. Subjective: Abdi has no c/o pain. Feeling fine overall. Objective: Vital Signs Temp Pulse Resp BP Pulse Ox 36.6 C 87 14 157/90 H 98 02/19/17 07:29 02/19/17 07:29 02/19/17 07:29 02/19/17 07:29 02/19/17 07:29 Laboratory Results 02/18/17 04:57 02/19/17 05:09 02/18/17 02/19/17 02/20/17 05:59 05:59 05:59 Intake Total 2100 2746 Balance 2100 2746 PT 12.6 SEC (12.0-15.0) 02/15/17 00:16 INR 0.95 (0.83-1.16) 02/15/17 00:16 - Physical Exam Constitutional: no apparent distress, appears nourished, not in pain Eyes: PERRL Ears, Nose, Mouth, Throat: hearing normal Respiratory: no respiratory distress Skin: other (incision on top of head well approximated, no drainage, no redness) Musculoskeletal: full muscle strength Neurologic: AAOx3 Psychiatric: interacting appropriately, not anxious ICD10 Worksheet Patient Problems: Problems Problem Status Onset Intracranial hemorrhage Acute Seizure disorder Acute Skull fracture Acute
[2017-02-19 12:03] VITALS: BP 158/99; PULSE 94; RESP 16; TEMP 97.9; O2SAT 97
--- NOTE | 2017-02-19 12:35 | PDIAF ---
- Diagnosis Code Status: Full Code - Medication Management Discharge Medications: Medications to Continue on Transfer Acetaminophen [Tylenol 325mg (*)] 325 mg PO Q6 PRN 02/15/17 [Last Taken Unknown] LORazepam [Ativan (*)] 1 mg PO DAILY PRN 02/15/17 [Last Taken Unknown] levETIRAcetam [Keppra] 750 mg PO BID 02/15/17 [Last Taken Unknown] Folic Acid [Folic Acid 1 MG (*)] 1 mg PO DAILY #0 tab 02/19/17 [Last Taken Unknown] HYDROcodone/APAP 10/325 [Hayward 10/325 (*)] 1 - 2 tab PO Q6HRS PRN #0 tab [Last Taken Unknown] Sennosides/Docusate Sodium [Senokot-S] 1 - 2 tab PO BID #0 tab 02/19/17 [Last Taken Unknown] Sodium Chloride [Salt Tablet] 1,000 mg PO TIDMEAL #0 tab 02/19/17 [Last Taken Unknown] Thiamine HCl [Vitamin B-1] 100 mg PO DAILY #0 tab 02/19/17 [Last Taken Unknown] amLODIPine BESYLATE [Norvasc 2.5 mg (*)] 2.5 mg PO DAILY #0 tab 02/19/17 [Last Taken Unknown] oxyCODONE IR [Oxycodone Ir (*)] 5 - 10 mg PO Q4 PRN #0 tab 02/19/17 [Last Taken Unknown] Discharge Medications: Refer to the Discharge Home Medication list for PRN reason. - Orders Services needed: Physical Therapy, Occupational Therapy, Speech Language Pathologist Diet Recommendation: no restrictions on diet, fluid restriction (use comment for amount) (1.5L per day) Diet Texture: Regular Texture Diet - Labs/Radiology Other Lab Name, Date and Time: Recheck NA Thursday, as patient is on Salt tabs and 1.5 L fluid restriction - Follow Up Care Current Providers and Referrals: Patient,NotPresent [Unknown] - As per Instructions
--- NOTE | 2017-02-19 16:03 | ASDISCHSUM ---
Discharge Information Plan Status:Inpatient Rehab Medically Cleared to Leave: Discharge Date:02/19/2017 02:10 PM CM D/C Disposition:[facility] Acute ADT D/C Disposition:[facility] IP Projected Discharge Date:02/23/2017 11:00 AM Transportation at D/C:Wheelchair Van Discharge Delay Reason: Follow-Up Date:02/23/2017 11:00 AM Discharge Slot: Final Diagnosis: Placement Information Referral Type:Rehabilitation Hospital Referral ID:[id number] Provider Name:[facility] Address 1:[address] Phone Number: Address 2: Fax Number: City:[place] Selection Factors: State:[place] Patient Contact Information Contact Name:ROMROGELIO Relationship:Friend Address:[address] Work Phone: City:[place] Alternate Phone: State/Zip Code:[place] [address] Email: Financial Information Financial Class:Medicare Advantage Plans Primary Plan Desc:[employer] ADV IP Primary Plan Number:[id number] Secondary Plan Desc: Secondary Plan Number: Assessment Information [facility] Progress Note CM Note CM Note Notes: 66yo male admitted for a fall and ICH. Needed a crani and continues to need neuro checks. Pt lives alone. ROBBI has been discussing D/C needs w/pt. 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 goes to work out, dinner and a bereavement grp. Therapies are thinking that he is doing well and may or may not need HC. Talked w/pt about HC vs out-pt rehab. could also get Meals on Wheels. Pt may not be allowed to drive and would use the Uber/Lyft res. ROBBI to check in w/pT Thursday to determine what he wishes to do. Date Signed: 02/17/2017 01:48 PM Electronically Signed By:Melissa Tapia [facility] CM Progress Note CM Note CM Note Notes: Pt's cell phone# [phone] for HC/Meals on Wheels if needed. Date Signed: 02/18/2017 11:23 AM Electronically Signed By:Melissa Tapia [facility] CM Progress Note CM Note CM Note Notes: Patient was evaluated for and accepted into [facility] inpatient rehab program. Spoke with patient who is in agreement with the d/c plan. Patient was given the packet of info on the program to review. Dr. Mcgraw confirmed patient will be ready for d/c tomorrow 02-19-17. Patient will contact his son to bring him some clean clothes as he understands he will go directly from ICU to Inpatient Rehab without an opportunity to return home. Transportation will be arranged tomorrow. CM will follow. Date Signed: 02/18/2017 05:02 PM Electronically Signed By:Fany Anne Intervention Information Intervention Type:*IM-Signed Date of Service:02/19/2017 01:50 PM Patient Type:Inpatient Staff Member:Yeimi Shannon Hours: Discipline: Severity: Comment:
== END 2017-02-19 14:10 | DRG 24 ==
LOC: EDUNIT# → F2N 02-15 03:03 → F3N 02-18 19:29
PROVIDERS: ADMIT Neurological Surgery; ATTEND Neurological Surgery
DX: S06.360A Traumatic hemorrhage of cerebrum, unspecified, without loss of consciousness, initial encounter (principal); E87.1 Hypo-osmolality and hyponatremia; F10.239 Alcohol dependence with withdrawal, unspecified; Z23 Encounter for immunization; G40.909 Epilepsy, unspecified, not intractable, without status epilepticus; W19.XXXA Unspecified fall, initial encounter
CPT/HCPCS: 92507-GN; 92523-GN; 96365; 97116-GP; 97162-GP; 97166-GO; 97530-GO; 97530-GP; 97535-GO; A9585; C1713; G0009; G0472; G0480; J0360; J0690; J1100; J1170; J1953; J2001; J2060; J2405; J2704; J3010; J3475; J3490

== ENCOUNTER 2017-02-19 14:22 | Inpatient (IN) | payer OTHER ==
[2017-02-19] MEDS ORDERED: LORazepam 1 MG TAB PO PRN (14:55)
[2017-02-19] MEDS ORDERED: oxyCODONE IR 5 MG TAB PO PRN (14:55)
[2017-02-19] MEDS ORDERED: BISACODYL 10 MG SUPP PR PRN (14:57)
[2017-02-19] MEDS: oxyCODONE IR 5 MG TAB PO PRN (16:01)
[2017-02-19] MEDS: hydrALAZINE 10 MG TAB PO PRN ×3 (16:39→23:20)
--- NOTE | 2017-02-19 16:51 | GHP ---
[f rep st] HISTORY AND PHYSICAL POST ADMISSION PHYSICIAN EVALUATION AND REHABILITATION TREATMENT PLAN. DATE OF ADMISSION: 02/19/2017 DATE OF EVALUATION: February 19, 2017. TIME OF EVALUATION: 1510. REFERRING FACILITY: [facility]. REFERRING PHYSICIAN: Dr. Mcgraw IMPAIRMENT GROUP: 2.22. DATE OF ONSET: 02/15/2017. CONSULTING PHYSICIANS: Neurosurgery, Dr. Coto; Pulmonary and Critical Care, Dr. Zhu. REHABLITATION DIAGNOSIS: Debility, status post intracranial hemorrhage and craniotomy. ETIOLOGIC DIAGNOSIS: Traumatic closed injury. DATE OF SURGERY: 02/15/2017. HISTORY OF PRESENT ILLNESS: This patient came to [facility] by ambulance, having been found confused in his driveway by a neighbor. Evaluation with head CT revealed a large right frontal intraparenchymal hemorrhage with a broad subdural hematoma extending along the right cerebral convexity in the interhemispheric falx. There was 6 mm of right- to-left shift, with mass effect on the right lateral ventricle. Additionally, there was a petechial hemorrhage or contusion of the low left frontal lobe and interventricular hemorrhage on the high left parietal convexity. There was also a nondisplaced right parietal and occipital skull fracture. He underwent surgery with a right craniotomy and evacuation of right frontal intraparenchymal hemorrhage. Post surgery, he developed hyponatremia consistent with SIADH, which improved with fluid restriction and sodium chloride supplementation. He had hypertension and was treated with amlodipine. He had elevated liver transaminases, and an ultrasound showed a hepatic steatosis. He was previously on Wellbutrin. This was discontinued due to its effect on lowering the seizure threshold. There was hypokalemia, which was repleted. He had pain control with hydrocodone/acetaminophen. There was an order for hydromorphone as well, which he last received on February 17. OTHER STUDIES AND LABS IN THE HOSPITAL: On the day before discharge, CBC showed an elevated white blood cell count at 10.19. He developed mild anemia, which was stable. His hemoglobin was 13.1, and his hematocrit was 35.1. There was a predominance of neutrophils and monocytes. Coagulation revealed a normal PT and PTT. Serum chemistry showed hyponatremia with a juan david of 129 on 2016. On the day of discharge, his renal function, electrolytes and liver functions are overall within normal limits, but for a slightly low albumin at 3.1 and a slightly low carbon dioxide at 18. Urinalysis was positive for protein, ketones, blood and urobilinogen. Toxicology screen was negative for ethyl alcohol in the serum on 02/15. He had a hepatitis panel drawn on 02/18, which was negative for viral hepatitis. A liver ultrasound was done, which revealed steatosis. PRECAUTIONS: He is a fall risk, and he has seizure precautions. ACTIVE COMORBIDITIES: He has no active tier 1, tier 2, or tier 3 comorbidities. PAST MEDICAL HISTORY: 1. Acute disseminating encephalomyelitis in the . 2. Seizure disorder. 3. Anxiety. PAST SURGICAL HISTORY: He has a history of a craniotomy for a brain biopsy in the . PRE-HOSPITAL MEDICATIONS: Levetiracetam 500 mg p.o. b.i.d., trazodone and bupropion. ADMISSION MEDICATIONS: 1. Acetaminophen 325 mg p.o. q.6 hours p.r.n. 2. Amlodipine 2.5 mg p.o. daily. 3. Folic acid 1 mg p.o. daily. 4. Hydrocodone/acetaminophen 10/325 one to two tabs p.o. q.4 hours p.r.n. 5. Levetiracetam 750 mg p.o. b.i.d. 6. Lorazepam 1 mg p.o. daily p.r.n. 7. Oxycodone 5-10 mg q.4 hours p.r.n. 8. Senna/docusate 1-2 tablets p.o. b.i.d. 9. Sodium chloride 1000 mg p.o. t.i.d. with meals. 10. Thiamine 100 mg p.o. daily. ALLERGIES: There are no known drug allergies. FAMILY HISTORY: Noncontributory. SOCIAL HISTORY: He lives alone. He is a . He has a son who lives in [place] but travels extensively for work 5 days a week. He is a nonsmoker. He reports today that he enjoys occasional alcohol when he is out to dinner with friends. During his hospitalization, it was thought that he was a much more frequent alcohol user. 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 REVIEW OF SYSTEMS: He currently complains of a headache, approximately 4/10. He says he has had poor sleep, and that sleep has been interrupted by noise on the unit in the hospital. He is unclear whether pain has awakened him, but he has had head pain when awake at night. He denies neurologic changes, including no vision changes, difficulty swallowing, weakness, numbness or tingling of the extremities. He denies a cough or dyspnea. He denies chest pain or palpitations. He denies nausea, vomiting, constipation, or diarrhea. He denies joint pain or joint swelling. He denies skin rash or skin breakdown, and otherwise, a 10-point review of systems is negative. PHYSICAL EXAM: VITAL SIGNS: Blood pressure is 187/114. Heart rate is 84. Respiratory rate is 18. Oxygen saturation 96% on room air. Temperature is 36.5 degrees centigrade. His weight is 72.7 kg for a body mass index of 22.4. GENERAL: This is a well-nourished, well-developed man, appears his chronologic age, cooperative, and in no acute distress. HEENT: Extraocular movements are intact. Pupils are equal, round, and reactive to light. Mucous membranes are moist. Dentition is in good condition. Airway is moderately crowded, Mallampati class 3. NECK: Supple. HEART: There is a regular rate and rhythm , with no murmurs, rubs, or gallops. LUNGS: Clear to auscultation bilaterally. ABDOMEN: Soft, nontender, nondistended, with normoactive bowel sounds and no hepatosplenomegaly. EXTREMITIES: There is no cyanosis, clubbing , or edema. Radial and dorsalis pedis pulses are 2+ bilaterally. NEUROLOGIC: He is alert and oriented to month, year, location, and general situation. He is disoriented to the date of the month, but after reorientation, he retains the reorientation. Cranial nerves 2-12 are grossly intact. Motor strength overall is 5/5, with perhaps 4/5 strength at the left hamstring, and in some motor groups, he appears to be slow to develop full strength on testing. Sensation is intact to light touch. Deep tendon reflexes are 2+ bilaterally at the biceps and the Achilles tendons, and the left patellar tendon, and is trace to 1+ at the right patellar tendon. Plantar reflex is upgoing on the left and indeterminate on the right. There is pronator drift on the left upper extremity. [id number] reveals smooth movement, normal speed, and no past pointing. There is no tremor, resting or with intention. CURRENT LEVEL OF FUNCTION per the pre-admission screen. Regarding diet, feeding , and swallowing, he was on a regular diet. For grooming, he needed standby assistance with voice cues to attend to the task and to find appropriate items for the task. Regarding dressing, upper body was done seated with standby assist and voice cues. Lower body required contact guard assist to retrieve items and pull up pants, and required extra time to perform. Toileting was accomplished with standby assist and voice cues for task completion and safety. He was continent of bladder and bowel. Bed mobility was standby assist. Transfers were standby assist due to decreased balance. He used a 4-wheeled walker. Balance required minimal to moderate assistance. Endurance was fair. With no assistive device, he was able to ambulate 20 feet with minimal to moderate assistance and voice cues. Multiple losses of balance were observed, and he had poor insight and judgment regarding safety. He was able to ambulate 200 feet with contact guard and voice cues to negotiate the environment using a 4-wheeled walker. He was able to climb and descend 4 steps with contact guard and voice cues for safety. Regarding cognition, he was noted to have mild cognitive impairment with memory, attention, and speed of processing, requiring increased time to perform tasks. IMPRESSION: This patient is a 66-year-old man who may have suffered a seizure and was found in an altered state of consciousness, brought to the hospital, diagnosed with a right frontal intraparenchymal hematoma, as well as subdural hematoma. He underwent surgery with craniotomy and evacuation of the hematoma on 02/15/2017. His hospital course was complicated by hyponatremia, hypertension, elevated hepatic transaminases, hepatic steatosis, and concern regarding alcohol use and alcohol withdrawal, though it is unclear whether this was really a factor in his course. He otherwise came through his surgery well. Hyponatremia responded to fluid restriction and sodium chloride supplementation, and he was appropriate for inpatient rehabilitation. He will benefit from physical and occupational therapy to optimize mobility and activities of daily living, and speech and language pathology to assess and treat cognition. He will benefit from nursing care regarding fall risk, bowel and bladder, skin integrity, medication administration and medication education. He will benefit from the care of a physician regarding hyponatremia and pain management. His goal is to return home with supportive services as needed. For a safe discharge, it is anticipated that he will achieve independence with all ADLs and functional activities. He will have working knowledge of strategies for any persistent cognitive deficits. He may require assistance for shopping, meal preparation, and household management. He will have therapy with physical therapy, occupational therapy, and speech and language pathology for 60 minutes per day per discipline on 5-7 days of the week. His expected duration of stay is 7-10 days. It is expected that upon discharge, he will continue to benefit from outpatient therapy with speech and language pathology, as well as a brain injury support group. ASSESSMENT AND PLAN: 1. Debility with balance impairment and impaired ability to carry out activities of daily living following a right intraparenchymal hematoma and subdural hematoma and craniotomy on 02/15/2017. Physical and occupational therapy to optimize his mobility and activities of daily living. 2. Cognitive impairment following intraparenchymal and subdural hematoma and craniotomy to be assessed and treated per Speech and Language Pathology. 3. Hyponatremia. Continue fluid restriction. Follow his renal function and electrolytes, and liberalize fluid restriction as much as possible during his stay. 4. Pain management. Continue hydrocodone/acetaminophen 10/325 as ordered out of the hospital, but I have increased the allowable frequency to q.4 hours. Similarly, oxycodone 5-10 mg was ordered, and I have increased the frequency from q.4 hours to q.3 hours on an as-needed basis. He will have serial evaluation, and medications will be adjusted as needed. 5. Elevated blood pressure. With treatment for hypertension initiated in the hospital, it is conceivable that the sodium chloride supplementation is contributing, and pain may be contributing as well. If he continues to have elevated blood pressure with control of his pain, amlodipine will be titrated, hydralazine will be ordered on an as-needed basis. Reviewing hospital records, he last received a dose of the hydralazine yesterday night at 2326 and this morning at 5:40. Will order oral hydralazine on a p.r.n. basis. 6. Seizure disorder. Continue levetiracetam, and there will be seizure precautions. 7. Constipation, likely due to opiate medications. Continue laxatives as ordered out of the hospital. 8. Possible history of alcohol abuse. He has no signs or symptoms of alcohol withdrawal at present. Will discontinue folic acid and thiamine as he has likely been repleted, and initiate a multivitamin. Will continue to observe for signs or symptoms of alcohol withdrawal. 9. Prophylaxis: Neurosurgery was holding anticoagulants due to recent brain bleed. Continue MELE hose and SCDs. Observe for mobility. If he is walking greater than 150 feet 3 times a day or more, there will be no indication for anticoagulation. Additionally, he does not have hemiparesis, so overall, his risk is only moderate. /[id number]/MODL MTDD
--- NOTE | 2017-02-19 17:08 | PDOREHIP ---
Admission [facility] - Admission - 3 Day Assessment Period Admission Date/Day 1: 02/19/17 Day 2: 02/20/17 Day 3: 02/21/17 - Active Diagnoses Comorbidities and Co-existing Conditions at Admission: 14272. None of the Above - Skin Conditions Unhealed Pressure Ulcer (1 or more/Stage 1 or >)-Admission: 0. No
[2017-02-19] MEDS: SODIUM CHLORIDE 1,000 MG TAB PO SCH (18:49)
[2017-02-19] MEDS ORDERED: NON-FORMULARY NEW DRUG (Levetiracetam [Keppra] 750 MG) PO SCH (21:00)
[2017-02-19] MEDS ORDERED: levETIRAcetam 500 MG TAB PO SCH (21:00)
[2017-02-19] MEDS: HYDROCODONE/APAP 10/325 TAB PO PRN (21:11)
[2017-02-19] MEDS: levETIRAcetam 250 MG TAB PO SCH (21:12)
[2017-02-19] MEDS: SENNOSIDES/DOCUSATE SODIUM TAB PO SCH (21:13)
[2017-02-20] MEDS: oxyCODONE IR 5 MG TAB PO PRN ×3 (00:28→09:34)
[2017-02-20] MEDS: levETIRAcetam 250 MG TAB PO SCH ×2 (08:31→20:57)
[2017-02-20] MEDS: FOLIC ACID 1 MG TAB PO SCH (08:34)
[2017-02-20] MEDS: amLODIPine BESYLATE 5 MG TAB PO SCH (08:34)
[2017-02-20] MEDS: THIAMINE HCL 100 MG TAB PO SCH (08:36)
[2017-02-20] MEDS: SENNOSIDES/DOCUSATE SODIUM TAB PO SCH ×2 (08:36→20:57)
[2017-02-20] MEDS: SODIUM CHLORIDE 1,000 MG TAB PO SCH ×3 (11:40→18:26)
[2017-02-20 12:44] LABS: ANION GAP 11 mEq/L (8-16); CALCIUM 9.5 mg/dL (8.5-10.4); CARBON DIOXIDE 21 mEq/l (22-31); CHLORIDE 97 mEq/L (97-110); CREATININE 0.8 mg/dL (0.7-1.3); GLOMERULAR FILTRATION RATE > 60; GLUCOSE 85 mg/dL (70-100); POTASSIUM 3.5 mEq/L (3.5-5.2); SODIUM 129 mEq/L (134-144)
--- NOTE | 2017-02-20 14:24 | SOAPPROG ---
SOAP Progress Note Assessment/Plan: Assessment: 66-year-old man status post subdural hematoma and intraparenchymal hemorrhage with craniotomy and evacuation: * Debility with balance impairment and impaired ability to carry out activities of daily living following a right intraparenchymal hematoma and subdural hematoma and craniotomy on 02/15/2017. Mild left ignoral noted by PT. Physical and occupational therapy to optimize his mobility and activities of daily living. * Cognitive impairment following intraparenchymal and subdural hematoma and craniotomy. Deficits to attention communication executive function memory and problem solving/reasoning. Continue Speech and Language Pathology. * Hyponatremia. Sodium 129 today 02/20/2017; was 135 yesterday 02/19/2017. Unclear whether he has been following fluid restriction and missed 1st dose of sodium chloride with breakfast this morning. Continue fluid restriction. Recheck basic metabolic profile tomorrow 02/21/17. * Pain management. Continue hydrocodone/acetaminophen 10/325 as ordered out of the hospital, but I have increased the allowable frequency to q.4 hours. Similarly, oxycodone 5-10 mg was ordered, and I have increased the frequency from q.4 hours to q.3 hours on an as-needed basis. He will have serial evaluation, and medications will be adjusted as needed. * Elevated blood pressure. With treatment for hypertension initiated in the hospital, it is conceivable that the sodium chloride supplementation is contributing, and pain may be contributing as well. Increased amlodipine from 2.5 mg q.day to 5 mg q.day. Continue hydralazine p.r.n. systolic blood pressure greater than 160. * Superficial thrombosis right cephalic vein. Has erythema but no tenderness and otherwise not consistent with infection. Will treat with aspirin 81 mg q.day. * Seizure disorder. Continue levetiracetam, and seizure precautions. * Constipation, likely due to opiate medications. Continue laxatives as ordered out of the hospital. * Possible history of alcohol abuse. He has no signs or symptoms of alcohol withdrawal at present. Will discontinue folic acid and thiamine as he has likely been repleted, and will initiate a multivitamin. Will continue to observe for signs or symptoms of alcohol withdrawal. * Prophylaxis: Neurosurgery was holding anticoagulants due to recent brain bleed. Continue MELE hose and SCDs. He is walking greater than 150 feet 3 times a day or more, so there is be no indication for anticoagulation. 02/20/17 14:53 Subjective: No complaints other than feeling sleepy. Thinks he slept well. Not in pain. Does not feel thirsty. He is unsure about his fluid restriction. Denies fevers or chills, cough or dyspnea. No pain on the right forearm. Objective: Vital Signs Temp Pulse Resp BP Pulse Ox 36.7 C 89 17 111/87 H 95 02/20/17 05:50 02/20/17 08:25 02/20/17 05:50 02/20/17 08:34 02/20/17 05:50 Laboratory Results 02/20/17 10:45 02/19/17 02/20/17 02/21/17 05:59 05:59 05:59 Intake Total 750 690 Output Total 1975 100 Balance -1225 590 Physical Exam - Physical Exam General Appearance: WD/WN, alert, no apparent distress Respiratory: normal breath sounds, No crackles, No rhonchi, No wheezing Cardiac/Chest: regular rate, rhythm, No edema Skin: normal color, warm/dry, other (Erythema and induration over the proximal right forearm, nontender) Extremities: No swelling Neuro/Psych: alert, normal mood/affect, oriented x 3, cognition abnormalities ( Slow processing) ICD10 Worksheet Patient Problems: Problems Problem Status Onset Intracranial hemorrhage Acute Seizure disorder Acute Skull fracture Acute
[2017-02-20] MEDS: HYDROCODONE/APAP 10/325 TAB PO PRN (15:37)
[2017-02-20] MEDS: ASPIRIN EC 81 MG TAB PO SCH (15:37)
[2017-02-21] MEDS: HYDROCODONE/APAP 10/325 TAB PO PRN (02:37)
[2017-02-21 08:28] LABS: ANION GAP 10 mEq/L (8-16); CALCIUM 9.4 mg/dL (8.5-10.4); CARBON DIOXIDE 20 mEq/l (22-31); CHLORIDE 101 mEq/L (97-110); CREATININE 0.9 mg/dL (0.7-1.3); GLOMERULAR FILTRATION RATE > 60; GLUCOSE 95 mg/dL (70-100); POTASSIUM 3.5 mEq/L (3.5-5.2); SODIUM 131 mEq/L (134-144)
[2017-02-21] MEDS: levETIRAcetam 250 MG TAB PO SCH ×2 (08:50→20:08)
[2017-02-21] MEDS: FOLIC ACID 1 MG TAB PO SCH (08:50)
[2017-02-21] MEDS: SODIUM CHLORIDE 1,000 MG TAB PO SCH ×3 (08:51→17:47)
[2017-02-21] MEDS: THIAMINE HCL 100 MG TAB PO SCH (08:51)
[2017-02-21] MEDS: ASPIRIN EC 81 MG TAB PO SCH (08:51)
[2017-02-21] MEDS: SENNOSIDES/DOCUSATE SODIUM TAB PO SCH ×2 (08:52→20:08)
[2017-02-21] MEDS: POLYETHYLENE GLYCOL 3350 17 GM PKT PO SCH (08:52)
[2017-02-21] MEDS: amLODIPine BESYLATE 5 MG TAB PO SCH (08:52)
--- NOTE | 2017-02-21 09:47 | SOAPPROG ---
SOAP Progress Note Assessment/Plan: Assessment: 66-year-old man status post subdural hematoma and intraparenchymal hemorrhage with craniotomy and evacuation: * Debility with balance impairment and impaired ability to carry out activities of daily living following a right intraparenchymal hematoma and subdural hematoma and craniotomy on 02/15/2017. Physical and occupational therapy to optimize his mobility and activities of daily living. * Cognitive impairment following intraparenchymal and subdural hematoma and craniotomy. Deficits to attention communication executive function memory and problem solving/reasoning. Continue Speech and Language Pathology. * Hyponatremia. Sodium 131 THIS AM ; 02/20/2017 was 135. Unclear whether he has been following fluid restriction and missed 1st dose of sodium chloride with breakfast this morning. Continue fluid restriction. Recheck basic metabolic profile tomorrow 02/21/17. * Pain management. Continue hydrocodone/acetaminophen 10/325 as ordered out of the hospital, but I have increased the allowable frequency to q.4 hours. Similarly, oxycodone 5-10 mg was ordered, and I have increased the frequency from q.4 hours to q.3 hours on an as-needed basis. He will have serial evaluation, and medications will be adjusted as needed. * INSOMNIA-WILL WRITE P.R.N. ORDER FOR TRAZODONE 25 MG AT BEDTIME. ALL * Elevated blood pressure. With treatment for hypertension initiated in the hospital, it is conceivable that the sodium chloride supplementation is contributing, and pain may be contributing as well. Increased amlodipine from 2.5 mg q.day to 5 mg q.day. Continue hydralazine p.r.n. systolic blood pressure greater than 160. * Superficial thrombosis right cephalic vein. Has erythema but no tenderness and otherwise not consistent with infection. Will treat with aspirin 81 mg q.day. * Seizure disorder. Continue levetiracetam, and seizure precautions. * Constipation, likely due to opiate medications. Continue laxatives as ordered out of the hospital. * Possible history of alcohol abuse. He has no signs or symptoms of alcohol withdrawal at present. Will discontinue folic acid and thiamine as he has likely been repleted, and will initiate a multivitamin. Will continue to observe for signs or symptoms of alcohol withdrawal. * Prophylaxis: Neurosurgery was holding anticoagulants due to recent brain bleed. Continue MELE hose and SCDs. He is walking greater than 150 feet 3 times a day or more, so there is be no indication for anticoagulation. 02/21/17 09:48 Subjective: He reports that he is not sleeping well at night he had a headache last night and was given [place] with good relief. No problems reported by nursing. Nursing reports he is currently taking sodium chloride for hyponatremia. Objective: Vital Signs Temp Pulse Resp BP Pulse Ox 36.9 C 75 16 118/80 96 02/21/17 06:15 02/21/17 06:15 02/21/17 06:15 02/21/17 08:52 02/21/17 06:15 Laboratory Results 02/21/17 06:10 02/20/17 02/21/17 02/22/17 05:59 05:59 05:59 Intake Total 750 1010 400 Output Total 2375 1250 Balance -1625 -240 400 Physical Exam - Physical Exam General Appearance: WD/WN, alert, no apparent distress EENT: PERRL/EOMI Neck: non-tender, supple Respiratory: lungs clear, No crackles, No rales Cardiac/Chest: No edema, No JVD Abdomen: non-tender, soft, No rebound Skin: normal color, warm/dry Neuro/Psych: alert, oriented x 3 ICD10 Worksheet Patient Problems: Problems Problem Status Onset Intracranial hemorrhage Acute Seizure disorder Acute Skull fracture Acute
[2017-02-21] MEDS: oxyCODONE IR 5 MG TAB PO PRN ×2 (10:08→13:51)
[2017-02-21] MEDS: traZODone 50 MG TAB PO SCH (20:08)
[2017-02-22] MEDS: HYDROCODONE/APAP 10/325 TAB PO PRN ×2 (04:41→21:59)
[2017-02-22] MEDS: POLYETHYLENE GLYCOL 3350 17 GM PKT PO SCH (09:52)
[2017-02-22] MEDS: ASPIRIN EC 81 MG TAB PO SCH (09:54)
[2017-02-22] MEDS: levETIRAcetam 250 MG TAB PO SCH ×2 (09:54→22:00)
[2017-02-22] MEDS: FOLIC ACID 1 MG TAB PO SCH (09:54)
[2017-02-22] MEDS: SODIUM CHLORIDE 1,000 MG TAB PO SCH ×3 (09:55→17:34)
[2017-02-22] MEDS: THIAMINE HCL 100 MG TAB PO SCH (09:55)
[2017-02-22] MEDS: SENNOSIDES/DOCUSATE SODIUM TAB PO SCH ×2 (09:55→22:00)
--- NOTE | 2017-02-22 10:00 | SOAPPROG ---
SOAP Progress Note Assessment/Plan: Assessment: 66-year-old man status post subdural hematoma and intraparenchymal hemorrhage with craniotomy and evacuation: * Debility with balance impairment and impaired ability to carry out activities of daily living following a right intraparenchymal hematoma and subdural hematoma and craniotomy on 02/15/2017. Physical and occupational therapy to optimize his mobility and activities of daily living. * Cognitive impairment-improving Deficits to attention communication executive function memory and problem solving/reasoning. Continue Speech and Language Pathology. * Hyponatremia. Sodium 131 YESTERDAY ; 02/20/2017 was 135. Continue fluid restriction. Recheck basic metabolic profile TODAY. * Pain management. HE REPORTS GOOD PAIN MANAGEMENT AT THIS TIME Continue hydrocodone/acetaminophen 10/325 as ordered out of the hospital, but I have increased the allowable frequency to q.4 hours. Similarly, oxycodone 5-10 mg was ordered, and I have increased the frequency from q.4 hours to q.3 hours on an as-needed basis. He will have serial evaluation, and medications will be adjusted as needed. * INSOMNIA-WILL WRITE P.R.N. ORDER FOR TRAZODONE 25 MG AT BEDTIME. ALL * Elevated blood pressure. BLOOD PRESSURE LAST P.M. 120/80, THIS A.M. 105/80 Increased amlodipine from 2.5 mg q.day to 5 mg q.day. Continue hydralazine p.r.n. systolic blood pressure greater than 160. * Superficial thrombosis right cephalic vein. Has erythema but no tenderness and otherwise not consistent with infection. Will treat with aspirin 81 mg q.day. * Seizure disorder. Continue levetiracetam, and seizure precautions. * Constipation, likely due to opiate medications. Continue laxatives as ordered out of the hospital. * Possible history of alcohol abuse. He has no signs or symptoms of alcohol withdrawal at present. Will discontinue folic acid and thiamine as he has likely been repleted, and will initiate a multivitamin. Will continue to observe for signs or symptoms of alcohol withdrawal. * Prophylaxis: Neurosurgery was holding anticoagulants due to recent brain bleed. Continue MELE hose and SCDs. He is walking greater than 150 feet 3 times a day or more, so there is be no indication for anticoagulation. 02/21/17 09:48 02/22/17 09:58 Subjective: No new complaints per patient. He reports he is sleeping well and tolerating his therapies without difficulty. Objective: Vital Signs Temp Pulse Resp BP Pulse Ox 36.8 C 95 18 105/80 94 02/22/17 08:00 02/22/17 08:00 02/22/17 08:00 02/22/17 08:00 02/22/17 08:00 Laboratory Results 02/21/17 06:10 02/21/17 02/22/17 02/23/17 05:59 05:59 05:59 Intake Total 1010 1392 120 Output Total 1250 1740 400 Balance -240 -348 -280 Physical Exam - Physical Exam General Appearance: WD/WN, alert, no apparent distress Respiratory: lungs clear, normal breath sounds Abdomen: normal bowel sounds, non-tender, soft Neuro/Psych: alert, normal mood/affect, oriented x 3 ICD10 Worksheet Patient Problems: Problems Problem Status Onset Intracranial hemorrhage Acute Seizure disorder Acute Skull fracture Acute
[2017-02-22] MEDS: amLODIPine BESYLATE 5 MG TAB PO SCH (10:01)
[2017-02-22 13:50] LABS: ANION GAP 13 mEq/L (8-16); CALCIUM 9.9 mg/dL (8.5-10.4); CARBON DIOXIDE 23 mEq/l (22-31); CHLORIDE 100 mEq/L (97-110); GLOMERULAR FILTRATION RATE > 60; GLUCOSE 95 mg/dL (70-100); POTASSIUM 3.9 mEq/L (3.5-5.2); SODIUM 136 mEq/L (134-144)
[2017-02-22] MEDS: ACETAMINOPHEN 325 MG TAB PO PRN (14:48)
[2017-02-22] MEDS: traZODone 50 MG TAB PO SCH (22:00)
[2017-02-23] MEDS: HYDROCODONE/APAP 10/325 TAB PO PRN ×3 (08:36→20:59)
[2017-02-23] MEDS: ASPIRIN EC 81 MG TAB PO SCH (08:37)
[2017-02-23] MEDS: FOLIC ACID 1 MG TAB PO SCH (08:37)
[2017-02-23] MEDS: amLODIPine BESYLATE 5 MG TAB PO SCH (08:37)
[2017-02-23] MEDS: SENNOSIDES/DOCUSATE SODIUM TAB PO SCH ×2 (08:38→20:59)
[2017-02-23] MEDS: levETIRAcetam 250 MG TAB PO SCH ×2 (08:38→21:00)
[2017-02-23] MEDS: POLYETHYLENE GLYCOL 3350 17 GM PKT PO SCH (08:38)
[2017-02-23] MEDS: THIAMINE HCL 100 MG TAB PO SCH (08:39)
[2017-02-23] MEDS: SODIUM CHLORIDE 1,000 MG TAB PO SCH ×3 (08:39→18:33)
--- NOTE | 2017-02-23 11:01 | SOAPPROG ---
SOAP Progress Note Assessment/Plan: Assessment: 66-year-old man status post subdural hematoma and intraparenchymal hemorrhage with craniotomy and evacuation: * Debility with balance impairment and impaired ability to carry out activities of daily living following a right intraparenchymal hematoma and subdural hematoma and craniotomy on 02/15/2017. Physical and occupational therapy to optimize his mobility and activities of daily living. * Cognitive impairment-improving Deficits to attention communication executive function memory and problem solving/reasoning. Continue Speech and Language Pathology. * Hyponatremia. Na level this am 136, K 3.9 * Pain management. HE REPORTS GOOD PAIN MANAGEMENT AT THIS TIME Continue hydrocodone/acetaminophen 10/325 as ordered out of the hospital, but I have increased the allowable frequency to q.4 hours. Similarly, oxycodone 5-10 mg was ordered, and I have increased the frequency from q.4 hours to q.3 hours on an as-needed basis. He will have serial evaluation, and medications will be adjusted as needed. * INSOMNIA-MARKEDLY IMPROVED WITH TRAZODONE 25 MG AT BEDTIME. ALL * Elevated blood pressure. BLOOD PRESSURE THIS AM 142/94, 140/94. RECHECK THIS AFTERNOON AND IF STILL ELEVATED WILL GIVE ADDITIONAL 2.5 MG AMLODIPINE * Superficial thrombosis right cephalic vein. Has erythema but no tenderness and otherwise not consistent with infection. Will treat with aspirin 81 mg q.day. * Seizure disorder. Continue levetiracetam, and seizure precautions. * Constipation, likely due to opiate medications. Continue laxatives as ordered out of the hospital. * Possible history of alcohol abuse. He has no signs or symptoms of alcohol withdrawal at present. Will discontinue folic acid and thiamine as he has likely been repleted, and will initiate a multivitamin. Will continue to observe for signs or symptoms of alcohol withdrawal. * Prophylaxis: Neurosurgery was holding anticoagulants due to recent brain bleed. Continue MELE hose and SCDs. He is walking greater than 150 feet 3 times a day or more, so there is be no indication for anticoagulation. 02/21/17 09:48 02/22/17 09:58 02/23/17 10:54 02/23/17 11:01 Subjective: No new c/o. Slept well last pm. Objective: Vital Signs Temp Pulse Resp BP Pulse Ox 36.6 C 87 16 140/94 H 95 02/23/17 07:18 02/23/17 07:18 02/23/17 07:18 02/23/17 08:37 02/23/17 07:18 Laboratory Results 02/22/17 12:14 02/22/17 02/23/17 02/24/17 05:59 05:59 05:59 Intake Total 1392 1420 680 Output Total 1740 1750 200 Balance -348 -330 480 Physical Exam - Physical Exam General Appearance: WD/WN, alert, no apparent distress Respiratory: chest non-tender, lungs clear Cardiac/Chest: regular rate, rhythm, No edema Abdomen: normal bowel sounds, non-tender Skin: warm/dry (Neuro exam unchanged from previous) ICD10 Worksheet Patient Problems: Problems Problem Status Onset Intracranial hemorrhage Acute Seizure disorder Acute Skull fracture Acute
[2017-02-23] MEDS: traZODone 50 MG TAB PO SCH (21:00)
[2017-02-24] MEDS: HYDROCODONE/APAP 10/325 TAB PO PRN ×3 (07:35→20:33)
[2017-02-24] MEDS: ASPIRIN EC 81 MG TAB PO SCH (08:28)
[2017-02-24] MEDS: amLODIPine BESYLATE 5 MG TAB PO SCH (08:28)
[2017-02-24] MEDS: FOLIC ACID 1 MG TAB PO SCH (08:29)
[2017-02-24] MEDS: levETIRAcetam 250 MG TAB PO SCH ×2 (08:29→20:33)
[2017-02-24] MEDS: SODIUM CHLORIDE 1,000 MG TAB PO SCH ×3 (08:30→17:22)
[2017-02-24] MEDS: THIAMINE HCL 100 MG TAB PO SCH (08:30)
[2017-02-24] MEDS: SENNOSIDES/DOCUSATE SODIUM TAB PO SCH ×2 (08:30→20:33)
[2017-02-24] MEDS: POLYETHYLENE GLYCOL 3350 17 GM PKT PO SCH (08:30)
--- NOTE | 2017-02-24 18:02 | SOAPPROG ---
SOAP Progress Note Assessment/Plan: Assessment: 66-year-old man status post subdural hematoma and right intraparenchymal hemorrhage with craniotomy and evacuation on 02/15/2017: * Debility with balance impairment and impaired ability to carry out activities of daily living. Initial functional independence measure 82 on 02/24/2017. Noted to have decreased initiation. Ambulated 300 feet and climbed and descended 9 steps with standby assist. Supervision to standby assist for activities of daily living. Mild left ignoral noted by PT; left visual field cut per OT. Continue physical and occupational therapy to optimize his mobility and activities of daily living. * Cognitive impairment following intraparenchymal and subdural hematoma and craniotomy. Decreased attention, executive function, speed of processing, word retrieval, and incomplete expansion. Decreased insight. Continue Speech and Language Pathology. * Hyponatremia. Sodium 129 today 02/20/2017; was 135 yesterday 02/19/2017, 131 on 02/21/2017 and 136 on 02/22/2017. Recheck BMP in a.m. 02/25/2017. Liberalize fluid restriction and consider tape or of an ACL if sodium is still normal. * Pain management. Adequate with hydrocodone/acetaminophen 10/325 p.r.n.. Will discontinue oxycodone starting 02/24/2017. * Hypertension. Adequate control with amlodipine 5 mg q.day. Not using p.r.n. hydralazine. Blood pressure may improve when sodium chloride supplement can be discontinued. * Superficial thrombosis right cephalic vein. Has erythema but no tenderness and otherwise not consistent with infection. Will treat with aspirin 81 mg q.day. * Seizure disorder. Continue levetiracetam, and seizure precautions. * Constipation, likely due to opiate medications. Continue laxatives as ordered out of the hospital. * Possible history of alcohol abuse. He has no signs or symptoms of alcohol withdrawal at present. Will discontinue folic acid and thiamine as he has likely been repleted, and will initiate a multivitamin. Will continue to observe for signs or symptoms of alcohol withdrawal. * Prophylaxis: Neurosurgery was holding anticoagulants due to recent brain bleed. Continue MELE hose and SCDs. He is walking greater than 150 feet 3 times a day or more, so there is be no indication for anticoagulation. Attended staffing, 15 minutes. Discussed with case management, nursing, dietitian, PT, OT, MARKETING AND DEVELOPMENT COORDINATOR. Unclear who will be available to assist at home; Case Management to investigate further. Discharge date set for 03/06/2017. 02/24/17 17:56 Subjective: No complaints at present. Head pain is improved though he used hydrocodone/ acetaminophen twice today. No oxycodone used in 2 days. Bowels are moving. No fevers, chills, cough, dyspnea. Sleeping better with trazodone. Objective: Vital Signs Temp Pulse Resp BP Pulse Ox 36.6 C 76 17 128/80 H 97 02/24/17 07:30 02/24/17 07:30 02/24/17 07:30 02/24/17 08:28 02/23/17 18:23 Laboratory Results 02/22/17 12:14 02/23/17 02/24/17 02/25/17 05:59 05:59 05:59 Intake Total 1420 1690 118 Output Total 1350 2050 Balance 70 -360 118 - Time Spent With Patient Time Spent With Patient: Greater than 35 minutes floor time today, including more than 50% of time in coordination of care during staffing meeting, and counseling patient. Physical Exam - Physical Exam General Appearance: WD/WN, alert, no apparent distress Respiratory: normal breath sounds, No crackles, No rhonchi, No wheezing Cardiac/Chest: regular rate, rhythm, No edema Skin: normal color, warm/dry Neuro/Psych: no motor/sensory deficits, alert, normal mood/affect, oriented x 3 ICD10 Worksheet Patient Problems: Problems Problem Status Onset Intracranial hemorrhage Acute Seizure disorder Acute Skull fracture Acute
[2017-02-24] MEDS: traZODone 50 MG TAB PO SCH (20:33)
[2017-02-25] MEDS ORDERED: levETIRAcetam 250 MG TAB PO ONE (03:30)
[2017-02-25 08:11] LABS: CALCIUM 9.4 mg/dL (8.5-10.4); CREATININE 0.8 mg/dL (0.7-1.3); GLOMERULAR FILTRATION RATE > 60; GLUCOSE 87 mg/dL (70-100)
[2017-02-25] MEDS: SODIUM CHLORIDE 1,000 MG TAB PO SCH ×2 (08:22→17:30)
[2017-02-25] MEDS: THIAMINE HCL 100 MG TAB PO SCH (08:22)
[2017-02-25] MEDS: POLYETHYLENE GLYCOL 3350 17 GM PKT PO SCH (08:22)
[2017-02-25] MEDS: SENNOSIDES/DOCUSATE SODIUM TAB PO SCH ×2 (08:22→21:05)
[2017-02-25] MEDS: FOLIC ACID 1 MG TAB PO SCH (08:23)
[2017-02-25] MEDS: amLODIPine BESYLATE 5 MG TAB PO SCH (08:23)
[2017-02-25] MEDS: ASPIRIN EC 81 MG TAB PO SCH (08:23)
[2017-02-25] MEDS: levETIRAcetam 250 MG TAB PO SCH ×2 (08:23→21:05)
[2017-02-25 08:51] LABS: ANION GAP 10 mEq/L (8-16); CARBON DIOXIDE 22 mEq/l (22-31); CHLORIDE 104 mEq/L (97-110); POTASSIUM 3.6 mEq/L (3.5-5.2); SODIUM 136 mEq/L (134-144)
[2017-02-25] MEDS ORDERED: levETIRAcetam 250 MG TAB PO PRN (09:27)
[2017-02-25] MEDS: HYDROCODONE/APAP 10/325 TAB PO PRN ×2 (09:33→17:32)
--- NOTE | 2017-02-25 11:47 | SOAPPROG ---
SOAP Progress Note Assessment/Plan: Assessment: 66-year-old man status post subdural hematoma and right intraparenchymal hemorrhage with craniotomy and evacuation on 02/15/2017: * Debility with balance impairment and impaired ability to carry out activities of daily living. Initial functional independence measure 82 on 02/24/2017. Noted to have decreased initiation. Ambulated 300 feet and climbed and descended 9 steps with standby assist. Supervision to standby assist for activities of daily living. Mild left ignoral noted by PT; left visual field cut per OT. Continue physical and occupational therapy to optimize his mobility and activities of daily living. * Cognitive impairment following intraparenchymal and subdural hematoma and craniotomy. Decreased attention, executive function, speed of processing, word retrieval, and incomplete expansion. Decreased insight. Continue Speech and Language Pathology. * Hyponatremia. Sodium 129 today 02/20/2017; was 135 yesterday 02/19/2017, 131 on 02/21/2017 and 136 on 02/22/2017. Stable on 02/25/2017. Liberalize fluid restriction to 2000 cc per day from 1500 cc per day, and decrease sodium chloride tablet from three times daily to twice daily starting 02/25/2017. Recheck BMP 02/27/2017. * Pain management. Adequate with hydrocodone/acetaminophen 10/325 p.r.n.. Discontinued oxycodone starting 02/24/2017. * Hypertension. Adequate control with amlodipine 5 mg q.day. Not using p.r.n. hydralazine. Blood pressure may improve when sodium chloride supplement can be discontinued. * Superficial thrombosis right cephalic vein. Has erythema but no tenderness and otherwise not consistent with infection. Will treat with aspirin 81 mg q.day. * Seizure disorder. Continue levetiracetam, and seizure precautions. Unclear whether he really experienced an aura, but an extra 250 mg of levetiracetam on a p.r.n. basis is unlikely to cause harm. * Constipation, likely due to opiate medications. Continue laxatives as ordered out of the hospital. * Possible history of alcohol abuse. He has no signs or symptoms of alcohol withdrawal at present. Will discontinue folic acid and thiamine as he has likely been repleted, and will initiate a multivitamin. Will continue to observe for signs or symptoms of alcohol withdrawal. * Prophylaxis: Neurosurgery was holding anticoagulants due to recent brain bleed. Continue MELE hose and SCDs. He is walking greater than 150 feet 3 times a day or more, so there is be no indication for anticoagulation. Discussed with case management, nursing, dietitian, PT, OT, STAFF THERAPIST. Unclear who will be available to assist at home; Case Management to investigate further. Discharge date set for 03/06/2017. 02/25/17 11:48 Subjective: Reports he had felt an aura of a seizure coming on yesterday evening. He was given an extra 250 mg of levetiracetam by the nurse. He reports that he fell asleep within 5 minutes. The aura was a general feeling of discomfort with nothing specific such as vision changes or abnormal sensation, on these with auras that he is familiar with in the past. Otherwise without complaints. No cough, dyspnea, fevers, chills. Objective: Vital Signs Temp Pulse Resp BP Pulse Ox 36.6 C 86 14 147/95 H 95 02/25/17 06:12 02/25/17 06:12 02/25/17 06:12 02/25/17 08:23 02/25/17 06:12 Laboratory Results 02/25/17 06:00 02/24/17 02/25/17 02/26/17 05:59 05:59 05:59 Intake Total 3810 600 Output Total 9678 5078 Balance -360 993 Physical Exam - Physical Exam General Appearance: WD/WN, alert, no apparent distress Respiratory: normal breath sounds, No crackles, No rhonchi, No wheezing Cardiac/Chest: No diastolic murmur, No systolic murmur Skin: normal color, warm/dry Neuro/Psych: no motor/sensory deficits, alert, normal mood/affect, oriented x 3 ICD10 Worksheet Patient Problems: Problems Problem Status Onset Intracranial hemorrhage Acute Seizure disorder Acute Skull fracture Acute
[2017-02-25] MEDS: traZODone 50 MG TAB PO SCH (21:05)
[2017-02-26] MEDS: SODIUM CHLORIDE 1,000 MG TAB PO SCH ×2 (08:35→18:20)
[2017-02-26] MEDS: amLODIPine BESYLATE 5 MG TAB PO SCH (08:35)
[2017-02-26] MEDS: FOLIC ACID 1 MG TAB PO SCH (08:35)
[2017-02-26] MEDS: THIAMINE HCL 100 MG TAB PO SCH (08:35)
[2017-02-26] MEDS: POLYETHYLENE GLYCOL 3350 17 GM PKT PO SCH (08:35)
[2017-02-26] MEDS: ASPIRIN EC 81 MG TAB PO SCH (08:35)
[2017-02-26] MEDS: levETIRAcetam 250 MG TAB PO SCH ×2 (08:35→20:06)
[2017-02-26] MEDS: SENNOSIDES/DOCUSATE SODIUM TAB PO SCH ×2 (08:35→20:06)
--- NOTE | 2017-02-26 11:28 | SOAPPROG ---
SOAP Progress Note Assessment/Plan: 66-year-old man status post subdural hematoma and right intraparenchymal hemorrhage with craniotomy and evacuation on 02/15/2017: Today's update: Will provide a bedside urinal for the patient in case he is unable to get to the bathroom in time. Continue to monitor sodium closely, continue salt tabs of present dose. Bedside swallow evaluation by speech therapy today, patient has had a 2 year history of some swallowing difficulty by his report, not associated with other impairments at that time. 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 Sodium stable, no change to salt tablets today. * Debility with balance impairment and impaired ability to carry out activities of daily living. Initial functional independence measure 82 on 02/24/2017. Noted to have decreased initiation. Ambulated 300 feet and climbed and descended 9 steps with standby assist. Supervision to standby assist for activities of daily living. Mild left ignoral noted by PT; left visual field cut per OT. Continue physical and occupational therapy to optimize his mobility and activities of daily living. * Cognitive impairment following intraparenchymal and subdural hematoma and craniotomy. Decreased attention, executive function, speed of processing, word retrieval, and incomplete expansion. Decreased insight. Continue Speech and Language Pathology. * Reported dysphagia: Speech language pathology evaluation for bedside swallow * Hyponatremia. Sodium 129 today 02/20/2017; was 135 yesterday 02/19/2017, 131 on 02/21/2017 and 136 on 02/22/2017. Stable on 02/25/2017. Liberalize fluid restriction to 2000 cc per day from 1500 cc per day, and decrease sodium chloride tablet from three times daily to twice daily starting 02/25/2017. Recheck BMP 02/27/2017. * Pain management. Adequate with hydrocodone/acetaminophen 10/325 p.r.n.. Discontinued oxycodone starting 02/24/2017. * Hypertension. Adequate control with amlodipine 5 mg q.day. Not using p.r.n. hydralazine. Blood pressure may improve when sodium chloride supplement can be discontinued. * Superficial thrombosis right cephalic vein. Has erythema but no tenderness and otherwise not consistent with infection. Will treat with aspirin 81 mg q.day. * Seizure disorder. Continue levetiracetam, and seizure precautions. Unclear whether he really experienced an aura, but an extra 250 mg of levetiracetam on a p.r.n. basis is unlikely to cause harm. * Constipation, likely due to opiate medications. Continue laxatives as ordered out of the hospital. * Possible history of alcohol abuse. He has no signs or symptoms of alcohol withdrawal at present. Will discontinue folic acid and thiamine as he has likely been repleted, and will initiate a multivitamin. Will continue to observe for signs or symptoms of alcohol withdrawal. * Prophylaxis: Neurosurgery was holding anticoagulants due to recent brain bleed. Continue MELE hose and SCDs. He is walking greater than 150 feet 3 times a day or more, so there is be no indication for anticoagulation. * Urinary urgency/incontinence: Had incontinent episode morning of 02/26, unable to get to the restroom and time. Offered bedside urinal for now, this goal is still to get to the bathroom in time. Unclear who will be available to assist at home; Case Management to investigate further. Discharge date set for 03/06/2017. 02/26/17 11:24 Subjective: Chief complaint: Urinary incontinence No acute events overnight. Patient had an episode of incontinence this morning that he described as the urge to urinate, but unable to get to the bathroom in time. He stated he called for [facility], but he knew their busy in the did not make it in time for him to get to the bathroom. Discussed possibilities including a bedside urinal which he agreed with. Additionally, he endorses no new shortness of breath, no new numbness tingling or weakness, no new chest pain. He endorses a 2 year history of some swallowing difficulties, more difficulty swallowing pills that used to be. He describes the problem is unable to get the pills from the front of his mouth down his throat. He says that liquids go right past. Of note, he had acute disseminated encephalomyelitis in the 1980s, spent time in inpatient rehabilitation at [place] [id number]. He feels that all dysphagia resolved at that time, however he did notice some swallowing problems 2 years ago not associated with any other neurological problems or diagnoses. He did not seek medical care at that time because he did not know what asked. He has not had any coughing with meals or liquids. Objective: Vital Signs Temp Pulse Resp BP Pulse Ox 36.6 C 82 16 135/80 H 95 02/26/17 06:04 02/26/17 06:04 02/26/17 06:04 02/26/17 08:35 02/26/17 06:04 Laboratory Results 02/25/17 06:00 02/25/17 02/26/17 02/27/17 05:59 05:59 05:59 Intake Total 338 736 460 Output Total 9889 3580 800 [facility] 992 -2114 -40 Physical Exam - Physical Exam General Appearance: WD/WN, alert, no apparent distress EENT: No scleral icterus (R), No scleral icterus (L) Respiratory: lungs clear, normal breath sounds, No respiratory distress, No accessory muscle use Cardiac/Chest: normal peripheral pulses, regular rate, rhythm Skin: normal color, warm/dry, No cyanosis Extremities: No pedal edema, No swelling Neuro/Psych: alert, normal mood/affect ICD10 Worksheet Patient Problems: Problems Problem Status Onset Intracranial hemorrhage Acute Seizure disorder Acute Skull fracture Acute
[2017-02-26] MEDS: traZODone 50 MG TAB PO SCH (20:06)
[2017-02-27 08:02] LABS: ANION GAP 11 mEq/L (8-16); CALCIUM 9.6 mg/dL (8.5-10.4); CARBON DIOXIDE 22 mEq/l (22-31); CHLORIDE 106 mEq/L (97-110); CREATININE 0.9 mg/dL (0.7-1.3); GLOMERULAR FILTRATION RATE > 60; GLUCOSE 89 mg/dL (70-100); POTASSIUM 3.6 mEq/L (3.5-5.2); SODIUM 139 mEq/L (134-144)
[2017-02-27] MEDS: SODIUM CHLORIDE 1,000 MG TAB PO SCH (08:35)
[2017-02-27] MEDS: amLODIPine BESYLATE 5 MG TAB PO SCH (08:38)
[2017-02-27] MEDS: ASPIRIN EC 81 MG TAB PO SCH (08:38)
[2017-02-27] MEDS: SENNOSIDES/DOCUSATE SODIUM TAB PO SCH ×2 (08:39→20:33)
[2017-02-27] MEDS: POLYETHYLENE GLYCOL 3350 17 GM PKT PO SCH (08:39)
[2017-02-27] MEDS: levETIRAcetam 250 MG TAB PO SCH ×2 (08:39→20:33)
[2017-02-27] MEDS: FOLIC ACID 1 MG TAB PO SCH (08:39)
[2017-02-27] MEDS: THIAMINE HCL 100 MG TAB PO SCH (08:48)
--- NOTE | 2017-02-27 13:12 | SOAPPROG ---
SOAP Progress Note Assessment/Plan: Assessment: 66-year-old man status post subdural hematoma and right intraparenchymal hemorrhage with craniotomy and evacuation on 02/15/2017: * Debility with balance impairment and impaired ability to carry out activities of daily living. Initial functional independence measure 82 on 02/24/2017. Noted to have decreased initiation. Ambulated 300 feet and climbed and descended 9 steps with standby assist. Supervision to standby assist for activities of daily living. Mild left ignoral noted by PT; left visual field cut per OT. Continue physical and occupational therapy to optimize his mobility and activities of daily living. * Cognitive impairment following intraparenchymal and subdural hematoma and craniotomy. Decreased attention, executive function, speed of processing, word retrieval, and incomplete expansion. Decreased insight. Continue Speech and Language Pathology. * Hyponatremia. Sodium 129 today 02/20/2017; was 135 02/19/2017, 131 on 02/21/2017 and 136 on 02/22/2017. Stable on 02/25/2017. Liberalize fluid restriction to 2000 cc per day from 1500 cc per day, and decrease sodium chloride tablet from three times daily to twice daily starting 02/25/2017. BMP 02/27/2017 with Na 139. D/C'd NaCl and fluid restriction. Recheck BMP 03/02/17. * Pain management. Adequate with hydrocodone/acetaminophen 10 p.r.n.. Discontinued oxycodone starting 02/24/2017. * Frontal/temporal AGUAYO: possible sinusitis though not noted on brain imaging in the hospital. Low suspicion for temporal arteritis. CRP moderately elevated but some elevation is expected post-surgery. Will repeat CRP and check ESR . * Hypertension. Adequate control with amlodipine 5 mg q.day. Not using p.r.n. hydralazine; D/C 02/27/17. Blood pressure may improve when sodium chloride supplement can be discontinued. * Superficial thrombosis right cephalic vein. Has erythema but no tenderness and otherwise not consistent with infection. Will treat with aspirin 81 mg q.day. * Seizure disorder. Continue levetiracetam, and seizure precautions. Unclear whether he really experienced an aura, but an extra 250 mg of levetiracetam on a p.r.n. basis is unlikely to cause harm. * Constipation, likely due to opiate medications. Continue laxatives as ordered out of the hospital. * Possible history of alcohol abuse. He has no signs or symptoms of alcohol withdrawal at present. Will discontinue folic acid and thiamine as he has likely been repleted, and will initiate a multivitamin. Will continue to observe for signs or symptoms of alcohol withdrawal. * Prophylaxis: Neurosurgery was holding anticoagulants due to recent brain bleed. Continue MELE hose and SCDs. He is walking greater than 150 feet 3 times a day or more, so there is be no indication for anticoagulation. Unclear who will be available to assist at home; Case Management to investigate further. Discharge date set for 03/06/2017. Follow-up with Neurosurgeon Dr. Coto after discharge. D/W Dr. Coto 02/27/17: OK to remove sutures. 02/27/17 14:44 Subjective: Complains of unusual headache and tenderness right lateral frontal area. Denies fevers or chills. Denies jaw claudication or vision changes. Reports head feels congested but mild. Objective: Vital Signs Temp Pulse Resp BP Pulse Ox 36.8 C 76 16 117/83 H 95 02/27/17 07:26 02/27/17 07:26 02/27/17 07:26 02/27/17 08:38 02/27/17 07:26 Laboratory Results 02/27/17 06:30 02/26/17 02/27/17 02/28/17 05:59 05:59 05:59 Intake Total 736 1220 400 Output Total 2850 1500 Balance -2114 -280 400 Physical Exam - Physical Exam General Appearance: WD/WN, alert, no apparent distress EENT: other (Tender right forehead above the eyebrow. No tenderness over temporal artery.) Respiratory: normal breath sounds, No crackles, No rhonchi, No wheezing Cardiac/Chest: regular rate, rhythm, No edema Skin: normal color, warm/dry, other (Scalp incision with sutures, clean dry and intact.) Neuro/Psych: no motor/sensory deficits, alert, normal mood/affect, oriented x 3 ICD10 Worksheet Patient Problems: Problems Problem Status Onset Intracranial hemorrhage Acute Seizure disorder Acute Skull fracture Acute
[2017-02-27] MEDS: traZODone 50 MG TAB PO SCH (20:33)
[2017-02-28] MEDS: POLYETHYLENE GLYCOL 3350 17 GM PKT PO SCH (08:07)
[2017-02-28] MEDS: ASPIRIN EC 81 MG TAB PO SCH (08:07)
[2017-02-28] MEDS: levETIRAcetam 250 MG TAB PO SCH ×2 (08:07→20:58)
[2017-02-28] MEDS: amLODIPine BESYLATE 5 MG TAB PO SCH (08:07)
[2017-02-28] MEDS: FOLIC ACID 1 MG TAB PO SCH (08:07)
[2017-02-28] MEDS: THIAMINE HCL 100 MG TAB PO SCH (08:08)
[2017-02-28] MEDS: SENNOSIDES/DOCUSATE SODIUM TAB PO SCH ×2 (08:08→20:58)
[2017-02-28] MEDS: ACETAMINOPHEN 325 MG TAB PO PRN (08:17)
--- NOTE | 2017-02-28 11:30 | SOAPPROG ---
SOAP Progress Note Assessment/Plan: 66-year-old man status post subdural hematoma and right intraparenchymal hemorrhage with craniotomy and evacuation on 02/15/2017: Today's update: Doing well and participating well with therapies. Sodium level has been stable with a recheck on Thursday. Lifting fluid restriction today. Apparently, was to be done on a previous day but was not fully communicated. Remainder of plan unchanged. Continue to monitor sodium. * Debility with balance impairment and impaired ability to carry out activities of daily living. Initial functional independence measure 82 on 02/24/2017. Noted to have decreased initiation. Ambulated 300 feet and climbed and descended 9 steps with standby assist. Supervision to standby assist for activities of daily living. Mild left ignoral noted by PT; left visual field cut per OT. Continue physical and occupational therapy to optimize his mobility and activities of daily living. * Cognitive impairment following intraparenchymal and subdural hematoma and craniotomy. Decreased attention, executive function, speed of processing, word retrieval, and incomplete expansion. Decreased insight. Continue Speech and Language Pathology. * Hyponatremia. Sodium 129 today 02/20/2017; was 135 02/19/2017, 131 on 02/21/2017 and 136 on 02/22/2017. Stable on 02/25/2017. Liberalize fluid restriction to 2000 cc per day from 1500 cc per day, and decrease sodium chloride tablet from three times daily to twice daily starting 02/25/2017. BMP 02/27/2017 with Na 139. D/C'd NaCl and fluid restriction. Recheck BMP 03/02/17. * Pain management. Adequate with hydrocodone/acetaminophen 10/325 p.r.n.. Discontinued oxycodone starting 02/24/2017. * Frontal/temporal AGUAYO: possible sinusitis though not noted on brain imaging in the hospital. Low suspicion for temporal arteritis. CRP moderately elevated but some elevation is expected post-surgery. Will repeat CRP and check ESR . * Hypertension. Adequate control with amlodipine 5 mg q.day. Not using p.r.n. hydralazine; D/C 02/27/17. Blood pressure may improve when sodium chloride supplement can be discontinued. * Superficial thrombosis right cephalic vein. Has erythema but no tenderness and otherwise not consistent with infection. Will treat with aspirin 81 mg q.day. * Seizure disorder. Continue levetiracetam, and seizure precautions. Unclear whether he really experienced an aura, but an extra 250 mg of levetiracetam on a p.r.n. basis is unlikely to cause harm. * Constipation, likely due to opiate medications. Continue laxatives as ordered out of the hospital. * Possible history of alcohol abuse. He has no signs or symptoms of alcohol withdrawal at present. Will discontinue folic acid and thiamine as he has likely been repleted, and will initiate a multivitamin. Will continue to observe for signs or symptoms of alcohol withdrawal. * Prophylaxis: Neurosurgery was holding anticoagulants due to recent brain bleed. Continue MELE hose and SCDs. He is walking greater than 150 feet 3 times a day or more, so there is be no indication for anticoagulation. Unclear who will be available to assist at home; Case Management to investigate further. Discharge date set for 03/06/2017. Follow-up with Neurosurgeon Dr. Coto after discharge. D/W Dr. Coto 02/27/17: OK to remove sutures. 02/26/17 11:24 02/28/17 11:27 Subjective: Chief complaint: Hyponatremia No acute events overnight. Patient has stable sodium in the normal range for now, fluid restriction was to be lifted but did not get communicated. He has been off salt tabs. No confusion, no new shortness of breath or chest pain, no new numbness, tingling, or weakness. Participating well in therapies. Objective: Vital Signs Temp Pulse Resp BP Pulse Ox 36.7 C 86 16 107/85 H 94 02/28/17 06:33 02/28/17 06:33 02/28/17 06:33 02/28/17 08:07 02/28/17 06:33 Laboratory Results 02/27/17 06:30 02/27/17 02/28/17 03/01/17 05:59 05:59 05:59 Intake Total 1220 1690 Output Total 1500 2700 Balance -280 -1010 Physical Exam - Physical Exam General Appearance: WD/WN, alert, no apparent distress EENT: No scleral icterus (R), No scleral icterus (L) Respiratory: No respiratory distress, No accessory muscle use Cardiac/Chest: normal peripheral pulses, regular rate, rhythm, No edema Skin: normal color, warm/dry, No cyanosis Extremities: No pedal edema, No swelling Neuro/Psych: alert, normal mood/affect, oriented x 3 ICD10 Worksheet Patient Problems: Problems Problem Status Onset Intracranial hemorrhage Acute Seizure disorder Acute Skull fracture Acute
[2017-02-28] MEDS: traZODone 50 MG TAB PO SCH (20:58)
[2017-03-01] MEDS: POLYETHYLENE GLYCOL 3350 17 GM PKT PO SCH (08:58)
[2017-03-01] MEDS: ASPIRIN EC 81 MG TAB PO SCH (08:59)
[2017-03-01] MEDS: amLODIPine BESYLATE 5 MG TAB PO SCH (08:59)
[2017-03-01] MEDS: FOLIC ACID 1 MG TAB PO SCH (09:00)
[2017-03-01] MEDS: SENNOSIDES/DOCUSATE SODIUM TAB PO SCH ×2 (09:00→20:45)
[2017-03-01] MEDS: levETIRAcetam 250 MG TAB PO SCH ×2 (09:00→20:45)
[2017-03-01] MEDS: THIAMINE HCL 100 MG TAB PO SCH (09:00)
--- NOTE | 2017-03-01 11:13 | SOAPPROG ---
SOAP Progress Note Assessment/Plan: 66-year-old man status post subdural hematoma and right intraparenchymal hemorrhage with craniotomy and evacuation on 02/15/2017: Today's update: Doing well in therapies, CRP and ESR were not checked as scheduled, ordered for tomorrow morning. remainder of plan is unchanged. * Debility with balance impairment and impaired ability to carry out activities of daily living. Initial functional independence measure 82 on 02/24/2017. Noted to have decreased initiation. Ambulated 300 feet and climbed and descended 9 steps with standby assist. Supervision to standby assist for activities of daily living. Mild left ignoral noted by PT; left visual field cut per OT. Continue physical and occupational therapy to optimize his mobility and activities of daily living. * Cognitive impairment following intraparenchymal and subdural hematoma and craniotomy. Decreased attention, executive function, speed of processing, word retrieval, and incomplete expansion. Decreased insight. Continue Speech and Language Pathology. * Hyponatremia. Sodium 129 today 02/20/2017; was 135 02/19/2017, 131 on 02/21/2017 and 136 on 02/22/2017. Stable on 02/25/2017. Liberalize fluid restriction to 2000 cc per day from 1500 cc per day, and decrease sodium chloride tablet from three times daily to twice daily starting 02/25/2017. BMP 02/27/2017 with Na 139. D/C'd NaCl and fluid restriction. Recheck BMP 03/02/17. * Pain management. Adequate with hydrocodone/acetaminophen 10/325 p.r.n.. Discontinued oxycodone starting 02/24/2017. * Frontal/temporal AGUAYO: possible sinusitis though not noted on brain imaging in the hospital. Low suspicion for temporal arteritis. CRP moderately elevated but some elevation is expected post-surgery. Will repeat CRP and check ESR * Hypertension. Adequate control with amlodipine 5 mg q.day. Not using p.r.n. hydralazine; D/C 02/27/17. Blood pressure may improve when sodium chloride supplement can be discontinued. * Superficial thrombosis right cephalic vein. Has erythema but no tenderness and otherwise not consistent with infection. Will treat with aspirin 81 mg q.day. * Seizure disorder. Continue levetiracetam, and seizure precautions. Unclear whether he really experienced an aura, but an extra 250 mg of levetiracetam on a p.r.n. basis is unlikely to cause harm. * Constipation, likely due to opiate medications. Continue laxatives as ordered out of the hospital. * Possible history of alcohol abuse. He has no signs or symptoms of alcohol withdrawal at present. Will discontinue folic acid and thiamine as he has likely been repleted, and will initiate a multivitamin. Will continue to observe for signs or symptoms of alcohol withdrawal. * Prophylaxis: Neurosurgery was holding anticoagulants due to recent brain bleed. Continue MELE hose and SCDs. He is walking greater than 150 feet 3 times a day or more, so there is be no indication for anticoagulation. Unclear who will be available to assist at home; Case Management to investigate further. Discharge date set for 03/06/2017. Follow-up with Neurosurgeon Dr. Coto after discharge. D/W Dr. Coto 02/27/17: OK to remove sutures. 02/26/17 11:24 02/28/17 11:27 03/01/17 11:10 Subjective: chief complaint: Rehabilitation progress No acute events overnight. Patient making good progress in therapies, now independent in his room with a walking stick. No new shortness of breath or chest pain, no new numbness, tingling, or weakness. Patient has no concerns, doing well. Objective: Vital Signs Temp Pulse Resp BP Pulse Ox 36.9 C 103 H 20 117/88 H 94 03/01/17 06:13 03/01/17 08:00 03/01/17 06:13 03/01/17 08:59 03/01/17 06:13 Laboratory Results 02/27/17 06:30 02/28/17 03/01/17 03/02/17 05:59 05:59 05:59 Intake Total 1690 880 Output Total 2700 1750 Balance -1010 -870 Physical Exam - Physical Exam General Appearance: WD/WN, alert, No no apparent distress Respiratory: No respiratory distress, No accessory muscle use Cardiac/Chest: normal peripheral pulses, regular rate, rhythm, No edema Skin: normal color, warm/dry, No cyanosis Extremities: No pedal edema, No swelling Neuro/Psych: alert, normal mood/affect, oriented x 3 ICD10 Worksheet Patient Problems: Problems Problem Status Onset Intracranial hemorrhage Acute Seizure disorder Acute Skull fracture Acute
[2017-03-01] MEDS: traZODone 50 MG TAB PO SCH (20:45)
[2017-03-02 07:39] LABS: HEMATOCRIT 34.4 % (40.0-51.0)
[2017-03-02 07:58] LABS: ANION GAP 10 mEq/L (8-16); C-REACTIVE PROTEIN 21.8 mg/L (<10.0); CALCIUM 9.9 mg/dL (8.5-10.4); CARBON DIOXIDE 21 mEq/l (22-31); CHLORIDE 106 mEq/L (97-110); GLOMERULAR FILTRATION RATE > 60; GLUCOSE 80 mg/dL (70-100); POTASSIUM 3.7 mEq/L (3.5-5.2); SODIUM 137 mEq/L (134-144)
[2017-03-02] MEDS: SENNOSIDES/DOCUSATE SODIUM TAB PO SCH ×2 (08:24→20:38)
[2017-03-02] MEDS: ASPIRIN EC 81 MG TAB PO SCH (08:24)
[2017-03-02] MEDS: amLODIPine BESYLATE 5 MG TAB PO SCH (08:24)
[2017-03-02] MEDS: MULTIVITAMINS 1 EACH TAB PO SCH (08:24)
[2017-03-02] MEDS: levETIRAcetam 250 MG TAB PO SCH ×2 (08:24→20:38)
[2017-03-02] MEDS: POLYETHYLENE GLYCOL 3350 17 GM PKT PO SCH (08:24)
--- NOTE | 2017-03-02 14:13 | SOAPPROG ---
SOAP Progress Note Assessment/Plan: Assessment: 66-year-old man status post subdural hematoma and right intraparenchymal hemorrhage with craniotomy and evacuation on 02/15/2017: * Debility with balance impairment and impaired ability to carry out activities of daily living. Initial functional independence measure 82 on 02/24/2017; improved to 101 as of 03/02/2017. Independent in the room and low fall risk progressing to independent on the unit today requires cues to initiate any activity and becomes distracted. Mild left ignoral noted by PT; left visual field cut per OT. Continue physical and occupational therapy to optimize his mobility and activities of daily living. * Cognitive impairment following intraparenchymal and subdural hematoma and craniotomy. Decreased attention, executive function, speed of processing, and insight. Independent on the unit today 03/02/2017, and will observe whether he is able to manage his own schedule. Continue Speech and Language Pathology. * Frontal/temporal AGUAYO: possible sinusitis though not noted on brain imaging in the hospital. Low suspicion for temporal arteritis. CRP moderately elevated but some elevation is expected post-surgery; CRP reduced from 31 to 21 from 1999-04/2017. ESR elevated however headache has resolved. Continue to monitor.. Chronic/stable conditions: * Pain management. Adequate with hydrocodone/acetaminophen 10/325 p.r.n.. Discontinued oxycodone starting 02/24/2017. * Hyponatremia. Resolved. BMP normal on 04/2017 with sleep sodium chloride tablets and fluid restriction discontinued on 02/27/2017. Sodium 129 02/20/2017; was 135 02/19/2017, 131 on 02/21/2017 and 136 on 02/22/2017. Stable on 02/25/2017. Liberalize fluid restriction to 2000 cc per day from 1500 cc per day, and decrease sodium chloride tablet from three times daily to twice daily starting . BMP 02/27/2017 with Na 139. D/C'd NaCl and fluid restriction. Recheck BMP 03/02/17. * Hypertension. Adequate control with amlodipine 5 mg q.day. Not using p.r.n. hydralazine; D/C 02/27/17. Blood pressure may improve when sodium chloride supplement can be discontinued. * Superficial thrombosis right cephalic vein. Has erythema but no tenderness and otherwise not consistent with infection. Will treat with aspirin 81 mg q.day. * Seizure disorder. Continue levetiracetam, and seizure precautions. Unclear whether he really experienced an aura, but an extra 250 mg of levetiracetam on a p.r.n. basis is unlikely to cause harm. * Constipation, likely due to opiate medications. Continue laxatives as ordered out of the hospital. * Possible history of alcohol abuse. He has no signs or symptoms of alcohol withdrawal at present. Will discontinue folic acid and thiamine as he has likely been repleted, and will initiate a multivitamin. Will continue to observe for signs or symptoms of alcohol withdrawal. * Prophylaxis: Neurosurgery was holding anticoagulants due to recent brain bleed. Continue MELE hose and SCDs. He is walking greater than 150 feet 3 times a day or more, so there is be no indication for anticoagulation. Attended staffing, 15 minutes. Discussed with case management, nursing, PT, OT , HEART SPECIALIST. Unclear who will be available to assist at home. Consider assisted living verses assistance at home. Discharge date set for 03/06/2017. He will have outpatient PT, OT and HEART SPECIALIST. Follow-up with Neurosurgeon Dr. Coto after discharge. D/W Dr. Coto 02/27/17: OK to remove sutures. 03/02/17 14:07 Subjective: No complaints. Slept well. Denies headache. No fevers or chills. Objective: Vital Signs Temp Pulse Resp BP Pulse Ox 36.9 C 78 16 121/88 H 94 03/02/17 07:29 03/02/17 07:29 03/02/17 07:29 03/02/17 08:24 03/02/17 07:29 Laboratory Results 03/02/17 06:00 03/02/17 06:00 03/01/17 03/02/17 03/03/17 05:59 05:59 05:59 Intake Total 880 1610 670 Output Total 0300 0285 Balance -870 -890 670 - Time Spent With Patient Time Spent With Patient: Greater than 35 minutes floor time today, including more than 50% of time in coordination of care during staffing meeting, and counseling patient. Physical Exam - Physical Exam General Appearance: WD/WN, alert, no apparent distress Respiratory: No respiratory distress, No accessory muscle use Skin: normal color, warm/dry, other (Scalp incision with sutures removed, clean dry and intact.) Neuro/Psych: no motor/sensory deficits, alert, normal mood/affect ICD10 Worksheet Patient Problems: Problems Problem Status Onset Intracranial hemorrhage Acute Seizure disorder Acute Skull fracture Acute
[2017-03-02] MEDS: traZODone 50 MG TAB PO SCH (20:38)
[2017-03-03] MEDS: POLYETHYLENE GLYCOL 3350 17 GM PKT PO SCH (08:56)
[2017-03-03] MEDS: MULTIVITAMINS 1 EACH TAB PO SCH (08:56)
[2017-03-03] MEDS: ASPIRIN EC 81 MG TAB PO SCH (08:56)
[2017-03-03] MEDS: SENNOSIDES/DOCUSATE SODIUM TAB PO SCH ×2 (08:56→20:09)
[2017-03-03] MEDS: levETIRAcetam 250 MG TAB PO SCH ×2 (08:56→20:09)
[2017-03-03] MEDS: amLODIPine BESYLATE 5 MG TAB PO SCH (08:57)
--- NOTE | 2017-03-03 10:03 | SOAPPROG ---
SOAP Progress Note Assessment/Plan: 66-year-old man status post subdural hematoma and right intraparenchymal hemorrhage with craniotomy and evacuation on 02/15/2017: Today's update: Patient doing well, participating in therapies, going on outdoor excursion with PT. Remainder of plan below is relatively unchanged. Continues to make neurological improvement. * Debility with balance impairment and impaired ability to carry out activities of daily living. Initial functional independence measure 82 on 02/24/2017, 101 as of 03/02/2017. independent in the room at low risk of fall, progressing to independent on the unit. Require some cuing to initiate behavior and is easily distracted. Mild left Inattention noted by PT; left visual field cut per OT. Continue physical and occupational therapy to optimize his mobility and activities of daily living. * Cognitive impairment following intraparenchymal and subdural hematoma and craniotomy. Decreased attention, executive function, speed of processing, word retrieval, and incomplete expansion. Decreased insight. Continue Speech and Language Pathology. * Hyponatremia. Now stable off of fluid restriction and sodium tabs, 137 on 04/2017 * Pain management. Adequate with hydrocodone/acetaminophen 10/325 p.r.n.. Discontinued oxycodone starting 02/24/2017. * Frontal/temporal AGUAYO: possible sinusitis though not noted on brain imaging in the hospital. decreasing ESR and CRP, low suspicion for temporal arteritis. * Hypertension. Adequate control with amlodipine 5 mg q.day. Not using p.r.n. hydralazine; D/C 02/27/17. Monitor * Superficial thrombosis right cephalic vein. Has erythema but no tenderness and otherwise not consistent with infection. Will treat with aspirin 81 mg q.day. * Seizure disorder. Continue levetiracetam, and seizure precautions. Unclear whether he really experienced an aura, but an extra 250 mg of levetiracetam on a p.r.n. basis is unlikely to cause harm. * Constipation, likely due to opiate medications. Continue laxatives as ordered out of the hospital. * Possible history of alcohol abuse. He has no signs or symptoms of alcohol withdrawal at present. Will discontinue folic acid and thiamine as he has likely been repleted, and will initiate a multivitamin. Will continue to observe for signs or symptoms of alcohol withdrawal. * Prophylaxis: Neurosurgery was holding anticoagulants due to recent brain bleed. Continue MELE hose and SCDs. He is walking greater than 150 feet 3 times a day or more, so there is be no indication for anticoagulation. Unclear who will be available to assist at home; considering discharge to assisted living versus budget assistant at home. Discharge date set for 03/06/2017. Follow-up with Neurosurgeon Dr. Coto after discharge. D/W Dr. Coto 02/27/17: OK to remove sutures. 02/26/17 11:24 02/28/17 11:27 03/01/17 11:10 03/03/17 09:58 03/03/17 10:03 Subjective: Chief complaint: Neurological stability No acute events overnight. Patient denies any shortness of breath or chest pain , no new numbness, tingling, or weakness. His scalp incision is healing well, he endorses that therapy is going well in physical therapy agrees. No new symptoms or concerns. Sleeping well. Objective: Vital Signs Temp Pulse Resp BP Pulse Ox 36.7 C 81 15 140/93 H 94 03/03/17 07:19 03/03/17 07:19 03/03/17 07:19 03/03/17 08:57 03/03/17 07:19 Laboratory Results 03/02/17 06:00 03/02/17 06:00 03/02/17 03/03/17 03/04/17 05:59 05:59 05:59 Intake Total 1610 2670 240 Output Total 2500 1100 400 Balance -890 1570 -160 Physical Exam - Physical Exam General Appearance: WD/WN, alert, no apparent distress EENT: No scleral icterus (R), No scleral icterus (L) Neck: lymphadenopathy (L) Respiratory: No respiratory distress, No accessory muscle use Cardiac/Chest: regular rate, rhythm, No edema Skin: normal color, warm/dry, other ( Scalp incision is healing well, no surrounding erythema, discharge, or swelling.), No cyanosis Extremities: No pedal edema, No swelling Neuro/Psych: alert, normal mood/affect, oriented x 3 ICD10 Worksheet Patient Problems: Problems Problem Status Onset Intracranial hemorrhage Acute Seizure disorder Acute Skull fracture Acute
[2017-03-03] MEDS: traZODone 50 MG TAB PO SCH (20:09)
[2017-03-04] MEDS: MULTIVITAMINS 1 EACH TAB PO SCH (09:36)
[2017-03-04] MEDS: ASPIRIN EC 81 MG TAB PO SCH (09:37)
[2017-03-04] MEDS: SENNOSIDES/DOCUSATE SODIUM TAB PO SCH ×2 (09:37→20:16)
[2017-03-04] MEDS: POLYETHYLENE GLYCOL 3350 17 GM PKT PO SCH (09:37)
[2017-03-04] MEDS: levETIRAcetam 250 MG TAB PO SCH ×2 (09:37→20:16)
[2017-03-04] MEDS: amLODIPine BESYLATE 5 MG TAB PO SCH (09:37)
[2017-03-04] MEDS ORDERED: FLU VACC QS 2017-18 (3YR+)/PF 0.5 ML SYR (FLUARIX QUAD) IM ONE ×2 (12:46→20:13)
--- NOTE | 2017-03-04 12:57 | SOAPPROG ---
SOAP Progress Note Assessment/Plan: Assessment: 66-year-old man status post subdural hematoma and right intraparenchymal hemorrhage with craniotomy and evacuation on 02/15/2017: * Debility with balance impairment and impaired ability to carry out activities of daily living. Initial functional independence measure 82 on 02/24/2017; improved to 101 as of 03/02/2017. Independent in the room and low fall risk progressing to independent on the unit 03/02/17; requires cues to initiate any activity and becomes distracted. Mild left ignoral noted by PT; left visual field cut per OT. Continue physical and occupational therapy to optimize his mobility and activities of daily living. * Cognitive impairment following intraparenchymal and subdural hematoma and craniotomy. Decreased attention, executive function, speed of processing, and insight. Independent on the unit today 03/02/2017, and will observe whether he is able to manage his own schedule. Continue Speech and Language Pathology. Chronic/stable conditions: * Frontal/temporal AGUAYO: possible sinusitis though not noted on brain imaging in the hospital. Low suspicion for temporal arteritis. CRP moderately elevated but some elevation is expected post-surgery; CRP reduced from 31 to 21 from 1999-04/2017. ESR elevated however headache has resolved. * Pain management. Adequate with hydrocodone/acetaminophen 10/325 p.r.n.. Discontinued oxycodone starting 02/24/2017. * Hyponatremia. Resolved. BMP normal on 04/2017 with sleep sodium chloride tablets and fluid restriction discontinued on 02/27/2017. Sodium 129 02/20/2017; was 135 02/19/2017, 131 on 02/21/2017 and 136 on 02/22/2017. Stable on 02/25/2017. Liberalize fluid restriction to 2000 cc per day from 1500 cc per day, and decrease sodium chloride tablet from three times daily to twice daily starting . BMP 02/27/2017 with Na 139. D/C'd NaCl and fluid restriction. Recheck BMP 03/02/17. * Hypertension. Adequate control with amlodipine 5 mg q.day. Not using p.r.n. hydralazine; D/C 02/27/17. Blood pressure may improve when sodium chloride supplement can be discontinued. * Superficial thrombosis right cephalic vein. Has erythema but no tenderness and otherwise not consistent with infection. Will treat with aspirin 81 mg q.day. * Seizure disorder. Continue levetiracetam, and seizure precautions. Unclear whether he really experienced an aura, but an extra 250 mg of levetiracetam on a p.r.n. basis is unlikely to cause harm. * Constipation, likely due to opiate medications. Continue laxatives as ordered out of the hospital. * Possible history of alcohol abuse. He has no signs or symptoms of alcohol withdrawal at present. Will discontinue folic acid and thiamine as he has likely been repleted, and will initiate a multivitamin. Will continue to observe for signs or symptoms of alcohol withdrawal. * Prophylaxis: Neurosurgery was holding anticoagulants due to recent brain bleed. Continue MELE hose and SCDs. He is walking greater than 150 feet 3 times a day or more, so there is be no indication for anticoagulation. Unclear who will be available to assist at home. Consider assisted living verses assistance at home. Discharge date set for 03/06/2017. He will have outpatient PT, OT and C[facility]. Follow-up with Neurosurgeon Dr. Coto after discharge. D/W Dr. Coto 02/27/17: OK to remove sutures. 03/04/17 12:46 Subjective: No complaints. Curious about duration of surgery, # of stitches etc. Reports outing to [place] [employer] today, and denies difficulty with visual resendiz or navigating environment. Objective: Vital Signs Temp Pulse Resp BP Pulse Ox 36.9 C 93 14 109/78 97 03/04/17 07:46 03/04/17 07:46 03/04/17 07:46 03/04/17 09:37 03/04/17 07:46 Laboratory Results 03/02/17 06:00 03/02/17 06:00 03/03/17 03/04/17 03/05/17 05:59 05:59 05:59 Intake Total 2670 1370 358 Output Total 1100 2350 Balance 1570 -980 358 Physical Exam - Physical Exam General Appearance: WD/WN, alert, no apparent distress Respiratory: No respiratory distress, No accessory muscle use Skin: normal color, warm/dry Neuro/Psych: no motor/sensory deficits, alert, normal mood/affect, oriented x 3 ICD10 Worksheet Patient Problems: Problems Problem Status Onset Intracranial hemorrhage Acute Seizure disorder Acute Skull fracture Acute
[2017-03-04] MEDS: traZODone 50 MG TAB PO SCH (20:16)
[2017-03-05] MEDS: levETIRAcetam 250 MG TAB PO SCH ×2 (09:44→20:06)
[2017-03-05] MEDS: MULTIVITAMINS 1 EACH TAB PO SCH (09:44)
[2017-03-05] MEDS: SENNOSIDES/DOCUSATE SODIUM TAB PO SCH ×2 (09:46→20:09)
[2017-03-05] MEDS: POLYETHYLENE GLYCOL 3350 17 GM PKT PO SCH (09:46)
[2017-03-05] MEDS: ASPIRIN EC 81 MG TAB PO SCH (09:46)
[2017-03-05] MEDS: amLODIPine BESYLATE 5 MG TAB PO SCH (09:49)
[2017-03-05] MEDS: ACETAMINOPHEN 325 MG TAB PO PRN (12:31)
--- NOTE | 2017-03-05 14:39 | SOAPPROG ---
SOAP Progress Note Assessment/Plan: Assessment: 66-year-old man status post subdural hematoma and right intraparenchymal hemorrhage with craniotomy and evacuation on 02/15/2017: * Debility with balance impairment and impaired ability to carry out activities of daily living. Initial functional independence measure 82 on 02/24/2017; improved to 101 as of 03/02/2017. Independent in the room and low fall risk progressing to independent on the unit 03/02/17; requires cues to initiate any activity and becomes distracted. Mild left ignoral noted by PT; left visual field cut per OT. Continue physical and occupational therapy to optimize his mobility and activities of daily living. * Cognitive impairment following intraparenchymal and subdural hematoma and craniotomy. Decreased attention, executive function, speed of processing, and insight. Independent on the unit today 03/02/2017, and will observe whether he is able to manage his own schedule. Continue Speech and Language Pathology. Chronic/stable conditions: * Frontal/temporal AGUAYO: possible sinusitis though not noted on brain imaging in the hospital. Low suspicion for temporal arteritis. CRP moderately elevated but some elevation is expected post-surgery; CRP reduced from 31 to 21 from 1999-04/2017. ESR elevated however headache has resolved. * Pain management. Adequate with hydrocodone/acetaminophen 10/325 p.r.n.. Discontinued oxycodone starting 02/24/2017. * Hyponatremia. Resolved. BMP normal on 04/2017 with sleep sodium chloride tablets and fluid restriction discontinued on 02/27/2017. Sodium 129 02/20/2017; was 135 02/19/2017, 131 on 02/21/2017 and 136 on 02/22/2017. Stable on 02/25/2017. Liberalize fluid restriction to 2000 cc per day from 1500 cc per day, and decrease sodium chloride tablet from three times daily to twice daily starting . BMP 02/27/2017 with Na 139. D/C'd NaCl and fluid restriction. Recheck BMP 03/02/17. * Hypertension. Adequate control with amlodipine 5 mg q.day. Not using p.r.n. hydralazine; D/C 02/27/17. Blood pressure may improve when sodium chloride supplement can be discontinued. * Superficial thrombosis right cephalic vein. Has erythema but no tenderness and otherwise not consistent with infection. Will treat with aspirin 81 mg q.day. * Seizure disorder. Continue levetiracetam, and seizure precautions. Unclear whether he really experienced an aura, but an extra 250 mg of levetiracetam on a p.r.n. basis is unlikely to cause harm. * Constipation, likely due to opiate medications. Continue laxatives as ordered out of the hospital. * Possible history of alcohol abuse. He has no signs or symptoms of alcohol withdrawal at present. Will discontinue folic acid and thiamine as he has likely been repleted, and will initiate a multivitamin. Will continue to observe for signs or symptoms of alcohol withdrawal. * Prophylaxis: Neurosurgery was holding anticoagulants due to recent brain bleed. Continue MELE hose and SCDs. He is walking greater than 150 feet 3 times a day or more, so there is be no indication for anticoagulation. Discharging to assisted living tomorrow 03/06/2017. Continue PT, OT, [employer]. Primary care provider is Corey Reilly at [place]. Follow-up with Neurosurgeon Dr. Coto after discharge. D/W Dr. Coto 02/27/17: OK to remove sutures. 03/05/17 14:37 Subjective: Complains of intermittent headache right temporal area of and under I of over the sinus. Denies cold symptoms or postnasal drainage. Headache is intermittent and seems to respond to pressure over the painful areas. Otherwise doing well, no complaints. Objective: Vital Signs Temp Pulse Resp BP Pulse Ox 36.7 C 98 16 112/71 94 03/05/17 07:06 03/05/17 07:06 03/05/17 07:06 03/05/17 09:49 03/05/17 07:06 Laboratory Results 03/02/17 06:00 03/02/17 06:00 03/04/17 03/05/17 03/06/17 05:59 05:59 05:59 Intake Total 1370 1130 520 Output Total 2350 Balance -980 1130 520 Physical Exam - Physical Exam General Appearance: WD/WN, alert, no apparent distress Respiratory: normal breath sounds, No crackles, No rhonchi, No wheezing Cardiac/Chest: regular rate, rhythm, No edema Skin: normal color, warm/dry Neuro/Psych: no motor/sensory deficits, alert, normal mood/affect, oriented x 3 ICD10 Worksheet Patient Problems: Problems Problem Status Onset Intracranial hemorrhage Acute Seizure disorder Acute Skull fracture Acute
[2017-03-05] MEDS: traZODone 50 MG TAB PO SCH (20:06)
[2017-03-06 06:08] VITALS: PULSE 86; RESP 18; TEMP 98.4; O2SAT 93
[2017-03-06] MEDS: POLYETHYLENE GLYCOL 3350 17 GM PKT PO SCH (08:31)
[2017-03-06] MEDS: ASPIRIN EC 81 MG TAB PO SCH (08:32)
[2017-03-06] MEDS: SENNOSIDES/DOCUSATE SODIUM TAB PO SCH (08:32)
[2017-03-06] MEDS: MULTIVITAMINS 1 EACH TAB PO SCH (08:32)
[2017-03-06] MEDS: levETIRAcetam 250 MG TAB PO SCH (08:32)
[2017-03-06] MEDS: amLODIPine BESYLATE 5 MG TAB PO SCH (08:32)
[2017-03-06 08:37] VITALS: BP 133/88
--- NOTE | 2017-03-06 11:23 | PDOREHIP ---
Admission [facility] - Admission - 3 Day Assessment Period Admission Date/Day 1: 02/19/17 Day 2: 02/20/17 Day 3: 02/21/17 Discharge [facility] - Discharge - 3 Day Assessment Period 2 Days Prior to Anticipated Discharge Date: 03/04/17 1 Day Prior to Anticipated Discharge Date: 03/05/17 Anticipated Discharge Date: 03/06/17 - Discharge Skin Conditions Unhealed Pressure Ulcer (1 or more/Stage 1 or >)-Discharge: 0. No
--- NOTE | 2017-03-06 14:29 | GDS ---
[f rep st] DISCHARGE SUMMARY ADMITTING DIAGNOSIS: Status post craniotomy and evacuation of subdural hematoma and right intraparenchymal hemorrhage. DISCHARGE DIAGNOSIS: Status post craniotomy and evacuation of subdural hematoma and right intraparenchymal hemorrhage. OTHER DISCHARGE DIAGNOSES: 1. Cognitive impairment. 2. Hyponatremia. 3. Hypertension. 4. Seizure disorder. CONSULTATIONS: None. PROCEDURES: None. COMPLICATIONS: None. HISTORY AND HOSPITAL COURSE: This patient came to [facility] inpatient rehabilitation from [facility]. He had been admitted there after being found confused in his driveway by a neighbor. Evaluation with a head CT showed a large right frontal intraparenchymal hemorrhage and a broad a subdural hematoma along the right cerebral convexity and in the interhemispheric falx. He also had a petechial hemorrhage or contusion of the low left frontal lobe and intraventricular hemorrhage in the high left parietal convexity. Additionally, there was a nondisplaced right parietal and occipital skull fracture. He had surgery with craniotomy and evacuation of the right frontal intraparenchymal hemorrhage. Postsurgical complications included hyponatremia and hypertension. There were elevated liver transaminases, and an ultrasound of the liver showed hepatic steatosis. He was stabilized and discharged for rehabilitation. He did well in rehabilitation. His initial functional independence measure on 02/24/2017 was 82, which is consistent with assisted living level of function. He had decreased initiation. He needed [id number] assist for activities of daily living. There was a mild left ignoral and a left visual field cut. Regarding cognition, he was noted to have decreased attention, executive function, speed of processing, and word retrieval, and incomplete expansion when talking. He had considerable improvement, with his functional independence measure improving to 101 as of 03/02/2017; this is consistent with independent living. He was progressed to independent status in the room and on the unit; however, he continued to have cognitive impairment which was improving. Once he was independent on the unit, he was able to maintain his schedule and go to meals and therapy sessions on time. However, based on his cognitive issues and the fact that he lives alone with no significant support from anyone else, he was discharged to assisted living, and he was in agreement with this. He had hyponatremia, which was initially treated with a fluid restriction as well as sodium chloride tablet supplementation with meals. Over time, this resolved, and ultimately the fluid restriction was discontinued and the sodium chloride supplement was discontinued. Basic metabolic profile on 03/02/2017 was overall within normal limits. He had a slightly low carbon dioxide at 21. Sodium was normal at 137. Regarding hypertension, amlodipine was titrated to 5 mg daily. Blood pressure improved also with discontinuation of the sodium chloride supplement, and on the day of discharge his blood pressure is 133/88. History of seizure disorder. Levetiracetam was continued, and he showed no adverse effects. He had a headache, which, at one point, was on the right presybeterian and appeared to be pulsatile. ESR and CRP were tested though there was a low suspicion for temporal arteritis. ESR was elevated at 75 on 03/02/2017. CRP was 31.8 on 01/2017, and it improved to still elevated, but 21.8 on 03/02/2017. These elevated measures were likely due to his recent surgery. Headache resolved. DISCHARGE PHYSICAL EXAMINATION: GENERAL: A well-nourished, well-developed man , sitting up in bed, cooperative, and in no acute distress. HEART: A regular rate and rhythm with no murmurs, rubs, or gallops. LUNGS: Clear to auscultation bilaterally. ABDOMEN: Soft, nontender, and nondistended with normoactive bowel sounds. EXTREMITIES: No cyanosis, clubbing, or edema. NEUROLOGIC: Alert and oriented x3. Cranial nerves 2-12 are grossly intact. No focal weakness. Gait is within normal limits. DISCHARGE PLAN: CONDITION UPON DISCHARGE: Good. ACTIVITY: Ad chacha but would not recommend driving due to cognitive issues. DIET: Regular. DATE OF NEXT APPOINTMENT: He has followup scheduled with his primary care physician, Dr. Corey Bustos at [place], on 03/12/2017. He will see [place] neurologist, Dr. Rabia Galeana, on 03/27/2017, and he will have followup with neurosurgeon, Dr. Jorge Luis Coto, to be scheduled per [facility] with the patient. MEDICATIONS AT DISCHARGE: 1. Amlodipine 5 mg p.o. daily. 2. Aspirin 81 mg p.o. daily. 3. Multivitamin daily. 4. Polyethylene glycol 17 g p.o. daily. 5. Trazodone 50 mg p.o. q.h.s. 6. Acetaminophen 325 mg p.o. q.6 hours p.r.n. 7. Senna/docusate 1-2 tabs p.o. b.i.d. 8. Levetiracetam 750 mg p.o. b.i.d. ISSUES TO BE ADDRESSED FOLLOWUP: 1. Functional status and cognitive function: He will continue physical and occupational therapy as well as speech and language pathology at the [facility], and he can follow up regarding these issues with his primary care provider, Dr. Bustos. 2. Hypertension. Follow up with Dr. Bustos. Copy requested to: Dr. Corey Roman /[id number]/MODL [id number]
== END 2017-03-06 13:45 | DRG 945 ==
LOC: BREH 14:22
PROVIDERS: ADMIT Internal Medicine; ATTEND Internal Medicine
PROC: F07M3ZZ Motor Function Treatment of Musculoskeletal System - Whole Body (ICD-10-PCS; principal; 2017-02-19)
PROC: F08Z7ZZ Vocational Activities and Functional Community or Work Reintegration Skills Treatment (ICD-10-PCS; principal; 2017-02-19)
PROC: F08Z4ZZ Home Management Treatment (ICD-10-PCS; principal; 2017-02-19)
PROC: F0636ZZ Communicative/Cognitive Integration Skills Treatment of Neurological System - Whole Body (ICD-10-PCS; principal; 2017-02-19)
DX: S06.369D Traumatic hemorrhage of cerebrum, unspecified, with loss of consciousness of unspecified duration, subsequent encounter (principal); E87.1 Hypo-osmolality and hyponatremia; S02.0XXD Fracture of vault of skull, subsequent encounter for fracture with routine healing; S02.119D Unspecified fracture of occiput, subsequent encounter for fracture with routine healing; W19.XXXA Unspecified fall, initial encounter; I10 Essential (primary) hypertension; G40.909 Epilepsy, unspecified, not intractable, without status epilepticus; K59.00 Constipation, unspecified
CPT/HCPCS: 92507-GN; 92522-GN; 92610-GN; 97110-GO; 97110-GP; 97112-GP; 97116-GP; 97162-GP; 97166-GO; 97530-GO; 97530-GP; 97532-GO; 97535-GO; 97537-GO; G0008